=== PATIENT | female | born 1960 | race African-American/Black ===

== ENCOUNTER 2017-05-20 13:40 | Inpatient (IN) ==
[2017-05-20] MEDS ORDERED: SODIUM CHLORIDE 0.9% 1,000 ML IV STA (14:03)
--- NOTE | 2017-05-20 14:22 | Emergency Department Note ---
Rahul Conklin Brittany, am scribing for, and in the presence of, Ang Quintana MD 13:58. Lilian Conklin James D, MD, personally performed the services described in this documentation, ascribed by Gerda Kay in my presence, and it is both accurate and complete 420 . Arrival - Arrival ED Nursing Triage Note: Patient with reports of weakness and not feeling well; reports not taking her Diabetes medications in the last three days; her glucose per EMS 302; Mode of Arrival: Stretcher Limitations: No Limitations Source: Patient, RN Notes Reviewed <Ang Quintana - Last Filed: 05/20/17 16:09> <Lisandro Mckee - Last Filed: 05/20/17 17:24> - Arrival Chief Complaint: Non-Specific - History of Present Illness HPI Narrative: Patient is a 56 y/o obese black female presenting to the ED by EMS with c/o sharp left sided chest pain which onset this morning. Patient is a poor historian. She confirms that for the past 3 days she has not taken her diabetic medications as prescribed in the past 3 days. Denies any other pains other than chest pain. Reports history of prior CVA, HTN, and, Diabetes Mellitus. 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 No other complaint/pain. (Gerda Kay) Patient is a 56 y/o obese black female presenting to the ED by EMS with c/o sharp left sided chest pain which onset this morning. Patient is a poor historian. She confirms that for the past 3 days she has not taken her diabetic medications as prescribed in the past 3 days. Denies any other pains other than chest pain. Reports history of prior CVA, HTN, and, Diabetes Mellitus. 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 No other complaint/pain. (Ang Quintana) Allergies/Adverse Reactions: Allergies Allergy/AdvReac Type Severity Reaction Status Date / Time No Known Allergies Allergy Unverified 09/21/16 19:40 Home Medications: Home Medications Medication Instructions Recorded Confirmed Type Carbamazepine 300 mg PO BID 01/20/16 05/20/17 History Rosuvastatin Calcium [Crestor] 40 mg PO BEDTIME 01/20/16 05/20/17 History Albuterol/Ipratropium Neb [Duoneb] 3 ml RESP TX RT Q4H PRN #0 06/05/16 05/20/17 Rx nebulization solution Clopidogrel [Plavix] 75 mg PO DAILY 09/22/16 05/20/17 History Cyanocobalamin (Vitamin B-12) 2,500 mcg PO DAILY 09/22/16 05/20/17 History [Vitamin B12] Furosemide Tab [Lasix Tab] 40 mg PO TID 09/22/16 05/20/17 History tiZANidine [Zanaflex] 4 mg PO BEDTIME 09/22/16 05/20/17 History Insulin Glargine [Lantus] 25 unit SUBCUT QPM 01/13/17 05/20/17 History Fluticasone Propionate 2 spray BOTH NARES DAILY 05/20/17 05/20/17 History [Fluticasone 50 mcg Nasal [place]] Review of System - Review of System 12 point system: reviewed and no additional remarkable complaints except as stated - Review of System Eyes: Absent: vision change Respiratory: Absent: respiratory distress Cardiovascular: Present: as per HPI, chest pain Gastrointestinal: Absent: abdominal pain Genitourinary female: Absent: dysuria, frequency, urgency <Ang Quintana - Last Filed: 05/20/17 16:09> Medical,Surgical,& Family Hx - Medical History Cardio: History of: Cerebrovascular Disease, CHF (notable for most recent echo showing EF of 20%), Hypertension Neurology: History of: Cerebrovascular Accident Endocrine: History of: Diabetes Mellitus (IDDM) Respiratory: History of: Pulmonary Hypertension Gastrointestinal: History of: GI Problems (previous feeding tube) - Surgical History Abdominal Surgeries: Surgical HX of: Cholecystectomy - Family History Family History: Reports;: Family Cancer, Family Diabetes, Family Heart Disease - Social History Smoking Status: Never smoker Frequency of Alcohol Use: None Type of Drug Use: None <Ang Quintana - Last Filed: 05/20/17 16:09> Exam <Ang Quintana - Last Filed: 05/20/17 16:09> <Lisandro Mckee - Last Filed: 05/20/17 17:24> Physical Examination: GENERAL: This is an obese black female in no apparent distress. HEENT: Head is normocephalic and atraumatic. Pupils are equally round and reactive to light. Extraocular movement are intact. Oropharynx is benign with moist mucous membranes. NECK: Neck is soft and supple without tenderness. There are no masses. There is no lymphadenopathy. LUNGS: Lungs are clear to auscultation bilaterally. Chest rises symmetrically. There is no chest wall tenderness. CV: Heart is regular rate and rhythm without murmurs, rubs, or gallops. ABDOMEN: Abdomen is soft, non-tender to palpation. There are no abnormal masses palpated. There is no organomegaly. Bowel sounds are present and active. SKIN: Skin is warm and dry. No rash. EXTREMITIES: Patient has full range of motion without tenderness. There is no pedal edema. NEUROLOGIC: Awake, alert, and oriented x4. Cranial nerves II through XII are grossly intact. There are no motorsensory deficits. PSYCHIATRIC: Normal affect. Normal mood. (Gerda Kay) GENERAL: This is an obese black female in no apparent distress. HEENT: Head is normocephalic and atraumatic. Pupils are equally round and reactive to light. Extraocular movement are intact. Oropharynx is benign with moist mucous membranes. NECK: Neck is soft and supple without tenderness. There are no masses. There is no lymphadenopathy. LUNGS: Lungs are clear to auscultation bilaterally. Chest rises symmetrically. There is no chest wall tenderness. CV: Heart is regular rate and rhythm without murmurs, rubs, or gallops. ABDOMEN: Abdomen is soft, non-tender to palpation. There are no abnormal masses palpated. There is no organomegaly. Bowel sounds are present and active. SKIN: Skin is warm and dry. No rash. EXTREMITIES: Patient has full range of motion without tenderness. There is no pedal edema. NEUROLOGIC: Awake, alert, and oriented x4. Cranial nerves II through XII are grossly intact. There are no motorsensory deficits. PSYCHIATRIC: Normal affect. Normal mood. (Ang Quintana) Vital Signs: Vital Signs Temperature 98.4 F 05/20/17 13:40 Pulse Rate 96 H 05/20/17 13:40 Respiratory Rate 18 05/20/17 13:40 Blood Pressure 126/82 05/20/17 13:40 O2 Sat by Pulse Oximetry 95 05/20/17 13:40 Course <Ang Quintana - Last Filed: 05/20/17 16:09> <Lisandro Mckee - Last Filed: 05/20/17 17:24> Course Narrative: Medical decision making: Patient has left-sided chest pain with slightly elevated troponin, recommend admission the hospital service for further evaluation and possible cardiology consultation, as well as some Lovenox for possible NSTEMI as her INR is only 1 despite supposedly taking Coumadin daily. Blood pressure and urinary tract infection could also be addressed (Lisandro Mckee) Results - Labs Lab Results: I have reviewed the patients labs - EKG EKG results: interpreted by ERMD - Diagnostic Findings Procedure: Chest x-ray: image reviewed by me (Cardiomegaly, no infiltrates) <Ang Quintana - Last Filed: 05/20/17 16:09> - Labs CBC & BMP: 05/20/17 15:56 05/20/17 15:56 <Lisandro Mckee - Last Filed: 05/20/17 17:24> - Labs Labs: Laboratory Tests 05/20/17 13:53 POC Glucose 291 H Laboratory Tests 05/20/17 14:54 Urine Color Yellow Urine Appearance Cloudy Urine pH 6.0 Ur Specific [place] 1.023 Urine Protein 100 Urine Glucose (UA) Negative Urine Ketones 5 Urine Blood Negative Urine Nitrate Negative Urine Bilirubin Negative Urine Urobilinogen 2.0 H Urine Leukocytes Moderate H Urine RBC 2 Urine WBC 35 Urine WBC Clumps Occasional Ur Squamous Epith Cells Occasional Amorphous Crystals Few Urine Bacteria Moderate Urine Mucus Occasional (Gerda Kay) Laboratory Tests 05/20/17 13:53 POC Glucose 291 H Laboratory Tests 05/20/17 14:54 Urine Color Yellow Urine Appearance Cloudy Urine pH 6.0 Ur Specific [place] 1.023 Urine Protein 100 Urine Glucose (UA) Negative Urine Ketones 5 Urine Blood Negative Urine Nitrate Negative Urine Bilirubin Negative Urine Urobilinogen 2.0 H Urine Leukocytes Moderate H Urine RBC 2 Urine WBC 35 Urine WBC Clumps Occasional Ur Squamous Epith Cells Occasional Amorphous Crystals Few Urine Bacteria Moderate Urine Mucus Occasional (Ang Quintana) - Impressions EKG: Normal sinus rhythm with a rate of 94, nonspecific intraventricular conduction delay, nonspecific ST-T wave changes, left axis deviation. (Ang Quintana) Disposition Case discussed with: patient <Ang Quintana - Last Filed: 05/20/17 16:09> Case discussed with: patient, patient's family Time of Disposition: 17:24 <Lisandro Mckee - Last Filed: 05/20/17 17:24> Clinical Impression: Chest pain, Diabetes mellitus, Noncompliance, History of stroke, NSTEMI (non- ST elevated myocardial infarction) Disposition: Still a Patient Condition: Stable
--- NOTE | 2017-05-20 14:55 | XRay Report ---
Exam: XR chest 1V portable Date: 05/20/2017 2:03 PM Indication: Chest pain Comparison: 03/21/2017 Technical: AP Findings: Cardiomegaly is present. ASVD is present. Low volume effusions are present with some mild residual density in the left base with improved aeration right base. Mediastinum is intact. No pneumothorax. Impression: Cardiomegaly with low volume left effusion with overall slightly improved aeration however there is a component of CHF suspected PROCEDURE INTERPRETED AT [facility] DEPARTMENT OF RADIOLOGY Final Report Signed by: Dr. Bam David
[2017-05-20 15:32] LABS: Amorphous Crystals,Urine Few /HPF (Few); Apearance,Urine CLOUDY (Clear); Bacteria,Urine Moderate /HPF (Few); Bilirubin,Urine Negative (Negative); Blood, Urine Negative (Negative); Glucose,Urine (UA) Negative (Negative); Ketones,Urine 5 mg/dL (Negative); Mucus,Urine Occasional /LPF (Occasional); Nitrite,Urine Negative (Negative); Protein,Urine 100 MG/DL; RBC,Urine 2 /HPF (0-4); Squamous Epithelial Cell,Urine Occasional /HPF (0-10); Urine Color Yellow (Yellow); Urine Specific Gravity 1.023 (1.001-1.035); WBC,Urine 35 /HPF (0-6)
[2017-05-20 16:22] LABS: Basophils % 0.3 % (0.0-0.8); Eosinophils % 0.4 % (0.00-10.9); Hematocrit 40.7 VOL% (35.7-47.0); Immature Granulocytes % 0.3 %; Immature Granulocytes Absolute 0.02 #; Lymphocytes # 2.2 10*3/uL (1.4-4.0); Lymphocytes % 30.4 % (21.3-54.2); Mean Corpuscular HGB Conc 31.9 GM/DL (32-36); Mean Corpuscular Hemoglobin 27 PG (27-34); Mean Corpuscular Volume 83.4 FL (87-102); Mean Platelet Volume 10.4 FL (9.6-12.0); Monocytes # 0.5 10*3/uL (0.11-0.8); Monocytes % 6.6 % (1.7-12.7); Neutrophils # 4.4 10*3/uL (1.4-7.4); Platelet Count 179 T/CUMM (130-400); Red Blood Count 4.88 MC/CUMM (3.8-5.5); Red Cell Distribution Width 16.1 % (9.3-17.3); White Blood Count 7.1 T/CUMM (4-12)
[2017-05-20 16:56] LABS: Alanine Aminotransferase 11 U/L (13-56); Alkaline Phosphatase 65 U/L (45-117); Aspartate Amino Transferase 6 U/L (0-37); Bilirubin,Total < 0.39 MG/DL (0.2-1.0); Blood Urea Nitrogen 17 MG/DL (7-18); Calcium 8.6 MG/DL (8.5-10.1); Glucose 206 MG/DL (74-106); Osmolality,Calculated 299.4 MOS/KG (273-304); Potassium 3.3 MMOL/L (3.5-5.1); Sodium 147 MMOL/L (136-145)
[2017-05-20 16:58] LABS: Troponin I Only 0.112 NG/ML (0.00-0.045)
[2017-05-20] MEDS ORDERED: NITROGLYCERIN SL 0.4 MG TABLET SL STA (17:14)
[2017-05-20] MEDS ORDERED: cefTRIAXone 1,000 MG in SODIUM CHLORIDE 0.9% 100 ML IV STA (17:14)
[2017-05-20] MEDS ORDERED: ENOXAPARIN 100 MG/ML SYRINGE SUBCUT STA (17:23)
[2017-05-20] MEDS ORDERED: NITROGLYCERIN SL 0.4 MG TABLET SL ONE (18:31)
[2017-05-20] MEDS ORDERED: cefTRIAXone 1,000 MG VIAL ONE (18:31)
[2017-05-20] MEDS ORDERED: ENOXAPARIN 100 MG/ML SYRINGE SUBCUT ONE (18:31)
--- NOTE | 2017-05-20 18:40 | Hospitalist History & Physical ---
Assessment and Plan - Time spent with patient Time spent with patient: Greater than 30 minutes (1) Chest pain Status: Acute Assessment and plan: Left sided chest pain since this morning without any shortness of breath, denies nausea and vomiting, chills or fever.Toponin 0.112, Na 147, Potassium 3.3 , BUN 17 and creatinine 0.90 Will Admit. Order Lexiscan. Trending Tropinin series. Repeat EKG in a.m. Replace potassium. Check a BNP. Will consult Cardiology. Current Visit: Yes (2) Diabetes mellitus Status: Acute Assessment and plan: Will place on sliding scale protocol. Will continue home medications. Will order HA1c. Current Visit: Yes (3) History of stroke Status: Acute Assessment and plan: Left sided weakness with history of CVA. Will monitor. Current Visit: Yes (4) Hypokalemia Status: Acute Assessment and plan: Will order potassium replacement protocol. IV fluids with potassium. Current Visit: Yes History of Present Illness Chief complaint: left sided chest pain History of present illness: Ms. Smith is a 56 year old AA female presented to [facility] ED via EMS for complaint of sharp left-sided chest pain with onset this a.m. around 2 gradually became worse throughout the day. Patient is a poor historian. She verbalized to me that she was taking her medications for her diabetes and hypertension but it was reported to the ER physician she has not taken her medications in 3 days. EMS reports blood sugar was 302. Medical HX: CVA (left side deficits), diabetes, HTN. There was no family present in the room at the time of exam. She denies smoking, alcohol, or illicit drug use. She has see Dr Nicole in the past. After discussion with Dr Mckee ED physician and Dr Novak, Hospitalist medicine , it was in agreement the patient will be admitted for further evaluation and treatment. Home medications reviewed and reconciliation to follow. Home Medications Medication Instructions Recorded Confirmed Type Carbamazepine 300 mg PO BID 01/20/16 05/20/17 History Rosuvastatin Calcium [Crestor] 40 mg PO BEDTIME 01/20/16 05/20/17 History Albuterol/Ipratropium Neb [Duoneb] 3 ml RESP TX RT Q4H PRN #0 06/05/16 05/20/17 Rx nebulization solution Clopidogrel [Plavix] 75 mg PO DAILY 09/22/16 05/20/17 History Cyanocobalamin (Vitamin B-12) 2,500 mcg PO DAILY 09/22/16 05/20/17 History [Vitamin B12] Furosemide Tab [Lasix Tab] 40 mg PO TID 09/22/16 05/20/17 History tiZANidine [Zanaflex] 4 mg PO BEDTIME 09/22/16 05/20/17 History Insulin Glargine [Lantus] 25 unit SUBCUT QPM 01/13/17 05/20/17 History Fluticasone Propionate 2 spray BOTH NARES DAILY 05/20/17 05/20/17 History [Fluticasone 50 mcg Nasal [place]] Allergies Allergy/AdvReac Type Severity Reaction Status Date / Time No Known Allergies Allergy Unverified 09/21/16 19:40 Medical,Surgical,& Family Hx - Medical History Cardio: History of: Cerebrovascular Disease, CHF (notable for most recent echo showing EF of 20%), Hypertension Neurology: History of: Cerebrovascular Accident (left sided weakness) Endocrine: History of: Diabetes Mellitus (IDDM) Respiratory: History of: Pulmonary Hypertension Gastrointestinal: History of: GI Problems (previous feeding tube) - Surgical History Abdominal Surgeries: Surgical HX of: Cholecystectomy - Family History Family History: Reports;: Family Cancer, Family Diabetes, Family Heart Disease - Social History Smoking Status: Never smoker Frequency of Alcohol Use: None Type of Drug Use: None Review of systems: ROS completed and pertinent positives and negatives in HPI. Exam - Constitutional Vitals: Period Temp Pulse Resp BP Sys/Gee Pulse Ox Last 24 Hr 98.4 F-98.4 F 93-96 18-18 126-126/82-82 95 General appearance: no acute distress, over weight - Head Head exam: Present: normal inspection - Eye Eye exam: Present: EOMI Pupils: Present: ALONZO - ENT ENT exam: Present: other (moist membranes ) - Neck Neck exam: Present: normal inspection - Respiratory Respiratory exam: Present: clear to auscultation bilaterally. Absent: rhonchi, wheezes - Cardiovascular Cardiovascular exam: Present: regular rate and rhythm - GI/Abdominal GI/Abdominal exam: Present: normal bowel sounds, soft. Absent: tenderness - Extremities Exam Extremities exam: Present: full ROM (right side, left sided weaknes (HX: CVA)), edema (trace edema bilaterally) - Neurological Exam Neurological exam: Present: alert, oriented X3 - Psychiatric Psychiatric exam: Present: normal affect, normal mood. Absent: anxious - Skin Skin exam: Present: normal color, warm, dry Results - Labs CBC & BMP: 05/20/17 15:56 05/20/17 15:56 Lab Results: I have reviewed the past 24 hour labs - EKG EKG results: interpreted by MAX
[2017-05-20] MEDS ORDERED: ONDANSETRON 4 MG/2 ML VIAL IV PRN (19:04)
[2017-05-20] MEDS ORDERED: GLUCAGON 1 MG VIAL IM PRN (19:04)
[2017-05-20] MEDS ORDERED: ACETAMINOPHEN 325 MG TABLET PO PRN (19:04)
[2017-05-20] MEDS ORDERED: DEXTROSE 50% 25 GM/50 ML VIAL IV PRN (19:04)
[2017-05-20] MEDS ORDERED: POTASSIUM CHLORIDE 20 MEQ TABLET PO PRN (19:13)
[2017-05-20] MEDS ORDERED: SODIUM CHLOR 0.45% KCL 20 MEQ 20 MEQ/1,000 ML BAG IV SCH (20:00)
[2017-05-20] MEDS: INSULIN LISPRO 100 UNIT/ML SUBCUT SCH (21:04)
[2017-05-20 22:55] LABS: Troponin I Only 0.109 NG/ML (0.00-0.045)
[2017-05-21 04:48] LABS: Basophils % 0.4 % (0.0-0.8); Eosinophils % 0.4 % (0.00-10.9); Hematocrit 40.4 VOL% (35.7-47.0); Hemoglobin 12.6 GM/DL (12.0-16.0); Immature Granulocytes % 0.6 %; Immature Granulocytes Absolute 0.04 #; Lymphocytes # 2.4 10*3/uL (1.4-4.0); Lymphocytes % 34.5 % (21.3-54.2); Mean Corpuscular HGB Conc 31.2 GM/DL (32-36); Mean Corpuscular Hemoglobin 26 PG (27-34); Mean Corpuscular Volume 83.6 FL (87-102); Monocytes # 0.5 10*3/uL (0.11-0.8); Monocytes % 6.7 % (1.7-12.7); Neutrophils % 57.4 % (38.7-73.9); Platelet Count 196 T/CUMM (130-400); Red Blood Count 4.83 MC/CUMM (3.8-5.5); Red Cell Distribution Width 16.3 % (9.3-17.3)
[2017-05-21 05:33] LABS: Troponin I Only 0.114 NG/ML (0.00-0.045)
[2017-05-21 05:34] LABS: Magnesium 1.8 MG/DL (1.8-2.4); Osmolality,Calculated 300.3 MOS/KG (273-304); Potassium 3.2 MMOL/L (3.5-5.1)
--- NOTE | 2017-05-21 07:03 | EKG Report ---
Stationary ECG Study [facility] ER Test Date: 05/20/2017 3:52:10 PM Pat Name: HANNAH RIVERO Department: Room: 285 Gender: F Mental Health Advanced Practice Nurse: : 1960 Requested by: Ang Wheeler Order Number: [id number] Reading MD: JOSÉ ANTONIO SYLVESTER Intervals [place] Rate: 94 P: 79 DE: 156 QRS: -56 QRSD: 135 T: 93 QT: 410 QTc: 461 Interpretive Statements SINUS RHYTHM MARKED LEFT AXIS DEVIATION INTRAVENTRICULAR CONDUCTION DELAY Electronically Signed On 05-22-17 06:14:02 CDT by JOSÉ ANTONIO SYLVESTER [email or web address]
--- NOTE | 2017-05-21 07:13 | EKG Report ---
Stationary ECG Study [facility] Test Date: 05/21/2017 6:11:02 AM Pat Name: HANNAH RIVERO Department: Room: 285 Gender: F Milking Machine Operator: : 1960 Requested by: Roz Lindquist Order Number: [id number] Reading MD: JOSÉ ANTONIO SYLVESTER Intervals [place] Rate: 97 P: 78 [place]: 176 QRS: -40 QRSD: 142 T: 109 QT: 401 QTc: 456 Interpretive Statements SINUS RHYTHM ABNORMAL LEFT AXIS DEVIATION LEFT BUNDLE BRANCH BLOCK Electronically Signed On 05-22-17 06:15:04 CDT by JOSÉ ANTONIO SYLVESTER [email or web address]
[2017-05-21] MEDS ORDERED: ALBUTEROL/IPRATROPIUM 3 ML NEB RESP TX PRN (08:12)
[2017-05-21] MEDS: INSULIN LISPRO 100 UNIT/ML SUBCUT SCH ×2 (08:38→17:55)
[2017-05-21] MEDS: CLOPIDOGREL 75 MG TABLET PO SCH (08:39)
[2017-05-21] MEDS: PANTOPRAZOLE 40 MG TABLET PO SCH (08:39)
[2017-05-21] MEDS: carBAMazepine 200 MG TABLET PO SCH ×2 (08:39→21:48)
[2017-05-21] MEDS: FUROSEMIDE 40 MG TABLET PO SCH ×3 (08:39→21:48)
[2017-05-21] MEDS: CYANOCOBALAMIN 500 MCG TABLET PO SCH (08:39)
[2017-05-21] MEDS: FLUTICASONE 50 MCG NASAL SPRAY 16 GM BOTTLE BOTH NARES SCH (08:43)
[2017-05-21] MEDS: CIPROFLOXACIN 500 MG TABLET PO SCH ×2 (10:12→21:48)
--- NOTE | 2017-05-21 10:34 | Hospitalist Progress Note ---
Assessment and Plan (1) Nonischemic cardiomyopathy Problem details: Normal coronaries in 2007. Significant left ventricular dysfunction, pulmonary hypertension. Status: Chronic Assessment and plan: Ejection fraction 25-30% on echo January 2017. Current Visit: No (2) UTI (urinary tract infection) Status: Acute Assessment and plan: Gram-negative rods in urine. Follow-up culture. Start on Cipro. Continue Rocephin IV. Current Visit: No (3) Chest pain Status: Resolved Current Visit: Yes (4) Diabetes mellitus Status: Chronic Current Visit: Yes Qualifiers: Diabetes mellitus type: type 2 (5) History of stroke Status: Chronic Current Visit: No Hospitalist: Subjective Interval history: Patient seen and examined. No acute events overnight. Case discussed with nursing staff. Labs reviewed. No complaints overnight. Patient receiving antibiotics for urinary tract infection. Awaiting cardiology consult. Exam - Constitutional Vitals: Period Temp Pulse Resp BP Sys/Gee Pulse Ox Last 24 Hr 96.1 F-98.4 F 58-112 16-20 96-149/41-99 92-100 Exam: Constitutional System: No distress. No tremulousness. Head: Normocephalic, atraumatic. Ears, Nose and Throat System: No pain or tenderness. No epistaxis or discharge Eyes System: Pupils equal, round, and reactive. Extraocular muscles intact. Neck: Supple, without adenopathy, No jugular venous distention. Respiratory System: Chest clear to auscultation. Cardiovascular System: Heart with regular rate and rhythm. No murmur. GI System: Abdomen soft, nontender. Normo active bowel sounds present. Musculoskeletal System: limbs with no pedal edema. Full distal pulses. Neurological System: No discernable sensory deficit. No aphasia Psychiatric System: Conversation is rational Results - Labs CBC & BMP: 05/21/17 04:19 05/21/17 04:19 Lab Results: I have reviewed the past 24 hour labs
[2017-05-21 10:47] LABS: Troponin I Only 0.081 NG/ML (0.00-0.045)
--- NOTE | 2017-05-21 11:10 | Cardiology Consult Note ---
Assessment and Plan (1) Chest pain Status: Resolved Assessment and plan: This is a difficult history. She has marginal troponins but this is the case every time she presents and my suspicion is that she is having atypical chest pain. I am going to review a 2D echocardiogram to assess LV function check serial enzyme studies as well as an EKG. Current Visit: Yes (2) Mitral valve regurgitation Status: Chronic Current Visit: No Qualifiers: Cardiac valve disease etiology: nonrheumatic Qualified Code(s): I34.0 - Nonrheumatic mitral (valve) insufficiency (3) Noncompliance Status: Chronic Current Visit: No (4) Seizure disorder Status: Chronic Current Visit: No History of Present Illness - Data of Consult Patient: known to practice within the last 3 years - Consult Narrative Reason for consult: Patient with chest discomfort History of present illness: Ms. Smith is a 56 year old female who is a very poor historian. She has a history of diabetes and hypertension and has had a problem with history of difficulty communicating related to a CVA in the past. She is not with any family that can give me any further history. She says that yesterday she began to complain of chest discomfort. Pain is not typical for angina although again she is not a good describe her of her symptoms. She is not having problems with syncope or palpitations. Her potassium was low her troponin is and always has been in the alcazar zone. It usually runs in the 0.1 range. She denies any pleuritic component to her chest pain although it looks as if she is splinting when she takes a deep breath. She does not give me a history of any problems of related to recent fever or chills or cough. She is admitted with a history of chest discomfort for evaluation. She apparently is bedbound and is dependent on her for her activities. CC: Araceli Forbes MD - Home Medications and Allergies Home Medications: Home Medications Medication Instructions Recorded Confirmed Type Carbamazepine 300 mg PO BID 01/20/16 05/20/17 History Rosuvastatin Calcium [Crestor] 40 mg PO BEDTIME 01/20/16 05/20/17 History Albuterol/Ipratropium Neb [Duoneb] 3 ml RESP TX RT Q4H PRN #0 06/05/16 05/20/17 Rx nebulization solution Clopidogrel [Plavix] 75 mg PO DAILY 09/22/16 05/20/17 History Cyanocobalamin (Vitamin B-12) 2,500 mcg PO DAILY 09/22/16 05/20/17 History [Vitamin B12] Furosemide Tab [Lasix Tab] 40 mg PO TID 09/22/16 05/20/17 History tiZANidine [Zanaflex] 4 mg PO BEDTIME 09/22/16 05/20/17 History Insulin Glargine [Lantus] 25 unit SUBCUT QPM 01/13/17 05/20/17 History Fluticasone Propionate 2 spray BOTH NARES DAILY 05/20/17 05/20/17 History [Fluticasone 50 mcg Nasal [place]] Allergies/Adverse Reactions: Allergies Allergy/AdvReac Type Severity Reaction Status Date / Time No Known Allergies Allergy Unverified 09/21/16 19:40 Medical,Surgical,& Family Hx - Medical History Cardio: History of: Cerebrovascular Disease, CHF (notable for most recent echo showing EF of 20%), Hypertension Neurology: History of: Cerebrovascular Accident (left sided weakness) Endocrine: History of: Diabetes Mellitus (IDDM) Respiratory: History of: Pulmonary Hypertension Gastrointestinal: History of: GI Problems (previous feeding tube) - Surgical History Abdominal Surgeries: Surgical HX of: Cholecystectomy - Family History Family History: Reports;: Family Cancer, Family Diabetes, Family Heart Disease - Social History Smoking Status: Never smoker Frequency of Alcohol Use: None Type of Drug Use: None Physical Examination Vital Signs Temp Pulse Resp BP Pulse Ox 98.4 F 93 H 18 126/82 95 05/20/17 13:40 05/20/17 13:40 05/20/17 13:40 05/20/17 13:40 05/20/17 13:40 Exam: Physical exam: General: She is a well-developed well-nourished black lady who is unable to communicate related I think to a fascia. She has no focal neurologic deficits. She is alert but disoriented HEENT exam: Pupils are equal round reactive to light extraocular movements are intact there is reasonably good dentition the oral mucosa is not pale or cyanotic. Neck is supple there is no JVD trachea is midline carotid upstrokes are normal amplitude there is no audible bruit thyroid appears to be normal size Chest: Lungs: Clear without rales rhonchi or wheezes noted patient is mildly dyspneic at rest without abdominal breathing or intercostal retractions Abdomen: Abdomen is soft and nontender with normoactive bowel sounds is no hepatosplenomegaly there is no midline bruit or palpable abdominal aorta Extremities: There is no cyanosis or clubbing there is no significant edema. There is no kyphosis or scoliosis noted Neurologic: There does not appear to be any focal neurologic deficit. Patient moves all extremities. Result/EKG - Labs CBC & BMP: 05/21/17 04:19 05/21/17 04:19 Labs: Laboratory Results - last 24 hr 05/20/17 05/20/17 05/20/17 13:53 14:54 15:56 WBC 7.1 RBC 4.88 Hgb 13.0 Hct 40.7 MCV 83.4 L MCH 27 MCHC 31.9 L RDW 16.1 Plt Count 179 MPV 10.4 Neut % (Auto) 62.0 Lymph % (Auto) 30.4 [place] % (Auto) 6.6 Eos % (Auto) 0.4 Baso % (Auto) 0.3 Neut # (Auto) 4.4 Lymph # (Auto) 2.2 [place] # (Auto) 0.5 Eos # (Auto) 0.0 Baso # (Auto) 0.0 Immature Gran % 0.3 Nucleated RBC % 0.0 Immature Gran # 0.02 Nucleated RBCs # 0.00 Sodium Potassium Chloride Carbon Dioxide Anion Gap BUN Creatinine GFR Calculation BUN/Creatinine Ratio Glucose POC Glucose 291 H Hemoglobin A1c Calculated Osmolality Calcium Magnesium Total Bilirubin AST ALT Alkaline Phosphatase Total Creatine Kinase CK-MB (CK-2) Troponin I B-Natriuretic Peptide Total Protein Albumin Globulin Albumin/Globulin Ratio b-Hydroxybutyric mmol/L Cancelled Urine Color Yellow Urine Appearance Cloudy Urine pH 6.0 Ur Specific [place] 1.023 Urine Protein 100 Urine Glucose (UA) Negative Urine Ketones 5 Urine Blood Negative Urine Nitrate Negative Urine Bilirubin Negative Urine Urobilinogen 2.0 H Urine Leukocytes Moderate H Urine RBC 2 Urine WBC 35 Urine WBC Clumps Occasional Ur Squamous Epith Cells Occasional Amorphous Crystals Few Urine Bacteria Moderate Urine Mucus Occasional Ur Culture Indicated? Results to follow 05/20/17 05/20/17 05/20/17 15:56 20:51 22:09 WBC RBC Hgb Hct MCV MCH MCHC RDW Plt Count MPV Neut % (Auto) Lymph % (Auto) [place] % (Auto) Eos % (Auto) Baso % (Auto) Neut # (Auto) Lymph # (Auto) [place] # (Auto) Eos # (Auto) Baso # (Auto) Immature Gran % Nucleated RBC % Immature Gran # Nucleated RBCs # Sodium 147 H Potassium 3.3 L Chloride 111 H Carbon Dioxide 23 Anion Gap 16.3 H BUN 17 Creatinine 0.90 GFR Calculation 120 BUN/Creatinine Ratio 18.00 Glucose 206 H POC Glucose 284 H Hemoglobin A1c Calculated Osmolality 299.4 Calcium 8.6 Magnesium Total Bilirubin < 0.39 AST 6 ALT 11 L Alkaline Phosphatase 65 Total Creatine Kinase 35 CK-MB (CK-2) 1.1 Troponin I 0.112 H 0.109 H B-Natriuretic Peptide Total Protein 7.0 Albumin 3.0 L Globulin 4.0 H Albumin/Globulin Ratio 0.7 L b-Hydroxybutyric mmol/L Urine Color Urine Appearance Urine pH Ur Specific [place] Urine Protein Urine Glucose (UA) Urine Ketones Urine Blood Urine Nitrate Urine Bilirubin Urine Urobilinogen Urine Leukocytes Urine RBC Urine WBC Urine WBC Clumps Ur Squamous Epith Cells Amorphous Crystals Urine Bacteria Urine Mucus Ur Culture Indicated? 05/21/17 05/21/17 05/21/17 04:19 04:19 04:19 WBC 7.0 RBC 4.83 Hgb 12.6 Hct 40.4 MCV 83.6 L MCH 26 L MCHC 31.2 L RDW 16.3 Plt Count 196 MPV 11.0 Neut % (Auto) 57.4 Lymph % (Auto) 34.5 [place] % (Auto) 6.7 Eos % (Auto) 0.4 Baso % (Auto) 0.4 Neut # (Auto) 4.0 Lymph # (Auto) 2.4 [place] # (Auto) 0.5 Eos # (Auto) 0.0 Baso # (Auto) 0.0 Immature Gran % 0.6 Nucleated RBC % 0.0 Immature Gran # 0.04 Nucleated RBCs # 0.00 Sodium 148 H Potassium 3.2 L Chloride 113 H Carbon Dioxide 24 Anion Gap 14.2 BUN 17 Creatinine 1.00 GFR Calculation 89 BUN/Creatinine Ratio 17.00 Glucose 187 H POC Glucose Hemoglobin A1c Calculated Osmolality 300.3 Calcium 9.0 Magnesium 1.8 Total Bilirubin AST ALT Alkaline Phosphatase Total Creatine Kinase CK-MB (CK-2) Troponin I B-Natriuretic Peptide 1821 H Total Protein Albumin Globulin Albumin/Globulin Ratio b-Hydroxybutyric mmol/L Urine Color Urine Appearance Urine pH Ur Specific [place] Urine Protein Urine Glucose (UA) Urine Ketones Urine Blood Urine Nitrate Urine Bilirubin Urine Urobilinogen Urine Leukocytes Urine RBC Urine WBC Urine WBC Clumps Ur Squamous Epith Cells Amorphous Crystals Urine Bacteria Urine Mucus Ur Culture Indicated? 05/21/17 05/21/17 05/21/17 04:19 04:19 08:19 WBC RBC Hgb Hct MCV MCH MCHC RDW Plt Count MPV Neut % (Auto) Lymph % (Auto) [place] % (Auto) Eos % (Auto) Baso % (Auto) Neut # (Auto) Lymph # (Auto) [place] # (Auto) Eos # (Auto) Baso # (Auto) Immature Gran % Nucleated RBC % Immature Gran # Nucleated RBCs # Sodium Potassium Chloride Carbon Dioxide Anion Gap BUN Creatinine GFR Calculation BUN/Creatinine Ratio Glucose POC Glucose 238 H Hemoglobin A1c 8.5 H Calculated Osmolality Calcium Magnesium Total Bilirubin AST ALT Alkaline Phosphatase Total Creatine Kinase 34 CK-MB (CK-2) 1.1 Troponin I 0.114 H B-Natriuretic Peptide Total Protein Albumin Globulin Albumin/Globulin Ratio b-Hydroxybutyric mmol/L Urine Color Urine Appearance Urine pH Ur Specific [place] Urine Protein Urine Glucose (UA) Urine Ketones Urine Blood Urine Nitrate Urine Bilirubin Urine Urobilinogen Urine Leukocytes Urine RBC Urine WBC Urine WBC Clumps Ur Squamous Epith Cells Amorphous Crystals Urine Bacteria Urine Mucus Ur Culture Indicated? 05/21/17 10:07 WBC RBC Hgb Hct MCV MCH MCHC RDW Plt Count MPV Neut % (Auto) Lymph % (Auto) [place] % (Auto) Eos % (Auto) Baso % (Auto) Neut # (Auto) Lymph # (Auto) [place] # (Auto) Eos # (Auto) Baso # (Auto) Immature Gran % Nucleated RBC % Immature Gran # Nucleated RBCs # Sodium Potassium Chloride Carbon Dioxide Anion Gap BUN Creatinine GFR Calculation BUN/Creatinine Ratio Glucose POC Glucose Hemoglobin A1c Calculated Osmolality Calcium Magnesium Total Bilirubin AST ALT Alkaline Phosphatase Total Creatine Kinase 52 D CK-MB (CK-2) 1.1 Troponin I 0.081 H D B-Natriuretic Peptide Total Protein Albumin Globulin Albumin/Globulin Ratio b-Hydroxybutyric mmol/L Urine Color Urine Appearance Urine pH Ur Specific [place] Urine Protein Urine Glucose (UA) Urine Ketones Urine Blood Urine Nitrate Urine Bilirubin Urine Urobilinogen Urine Leukocytes Urine RBC Urine WBC Urine WBC Clumps Ur Squamous Epith Cells Amorphous Crystals Urine Bacteria Urine Mucus Ur Culture Indicated?
[2017-05-21] MEDS ORDERED: INSULIN GLARGINE 100 UNIT/ML SUBCUT ONE (17:37)
[2017-05-21] MEDS: INSULIN GLARGINE 100 UNIT/ML SUBCUT SCH (18:02)
[2017-05-21] MEDS: cefTRIAXone 1,000 MG in SODIUM CHLORIDE 0.9% 100 ML IV SCH (21:49)
[2017-05-21] MEDS: ROSUVASTATIN 20 MG TABLET PO SCH (21:49)
[2017-05-21] MEDS: tiZANidine 4 MG TABLET PO SCH (21:49)
--- NOTE | 2017-05-22 10:21 | Cardiology Progress Note ---
Assessment and Plan (1) Chest pain Status: Resolved Assessment and plan: This is a difficult history. She has marginal troponins but this is the case every time she presents and my suspicion is that she is having atypical chest pain. I am going to review a 2D echocardiogram to assess LV function check serial enzyme studies as well as an EKG. Current Visit: Yes (2) Mitral valve regurgitation Status: Chronic Current Visit: No Qualifiers: Cardiac valve disease etiology: nonrheumatic Qualified Code(s): I34.0 - Nonrheumatic mitral (valve) insufficiency (3) Noncompliance Status: Chronic Current Visit: No (4) Seizure disorder Status: Chronic Current Visit: No Cardiology - PN: Subj Interval history: 56-year-old lady who presented with chest discomfort. She has history of CVA and is dysarthric. She is a poor historian. Her troponins are nondiagnostic for evidence of an acute coronary syndrome. I think overall she is stable and our plan is going to increase her activity continue following closely. Exam (Progress Note) - Constitutional Vitals: Period Temp Pulse Resp BP Sys/Gee Pulse Ox Last 24 Hr 96 F-98.5 F 80-106 16-22 99-152/60-93 92-98 Exam: General:no acute distress. alert and oriented, mood and affect are normal. Dysarthric speech pattern. HEENT: no new lesions, sclerae are clear, mouth and pharynx benign Neck: supple, trachea midline, no JVD noted Lungs: no rales ronchi or wheeze is noted. pt comfortable without accesory muscle use to assist with breathing CV: RRR no murmur rub or gallop is noted. Abd: soft and nontender, BSNA, no masses. Ext: no cyanosis, clubbing or edema Neuro: She has a left sided hemiparesis Result/EKG - Labs CBC & BMP: 05/21/17 04:19 05/21/17 04:19 Labs: Laboratory Results - last 24 hr 05/21/17 05/21/17 05/21/17 10:07 12:11 15:40 POC Glucose 179 H 252 H Total Creatine Kinase 52 D CK-MB (CK-2) 1.1 Troponin I 0.081 H D 05/22/17 07:26 POC Glucose 163 H Total Creatine Kinase CK-MB (CK-2) Troponin I
[2017-05-22] MEDS: INSULIN LISPRO 100 UNIT/ML SUBCUT SCH ×2 (10:54→16:45)
[2017-05-22] MEDS: CYANOCOBALAMIN 500 MCG TABLET PO SCH (11:44)
[2017-05-22] MEDS: PANTOPRAZOLE 40 MG TABLET PO SCH (12:00)
[2017-05-22] MEDS: FUROSEMIDE 40 MG TABLET PO SCH ×3 (12:00→21:36)
[2017-05-22] MEDS: carBAMazepine 200 MG TABLET PO SCH ×2 (12:00→21:35)
[2017-05-22] MEDS: CLOPIDOGREL 75 MG TABLET PO SCH (12:01)
[2017-05-22] MEDS: CIPROFLOXACIN 500 MG TABLET PO SCH ×2 (12:01→21:36)
[2017-05-22] MEDS: FLUTICASONE 50 MCG NASAL SPRAY 16 GM BOTTLE BOTH NARES SCH (12:01)
--- NOTE | 2017-05-22 12:09 | Discharge Summary ---
Hospital Course - Hospital Course Hospital Course: Ms. Smith is a 56-year-old -[place] female that was admitted through the emergency department 5 days ago with the following presentation and assessment. Chief complaint: left sided chest pain History of present illness: Ms. Smith is a 56 year old AA female presented to [facility] ED via EMS for complaint of sharp left-sided chest pain with onset this a.m. around 2 gradually became worse throughout the day. Patient is a poor historian. She verbalized to me that she was taking her medications for her diabetes and hypertension but it was reported to the ER physician she has not taken her medications in 3 days. EMS reports blood sugar was 302. Medical HX: CVA (left side deficits), diabetes, HTN. There was no family present in the room at the time of exam. She denies smoking, alcohol, or illicit drug use. She has see Dr Nicole in the past. Home medications reviewed and reconciliation to follow. (1) Chest pain Status: Acute Assessment and plan: Left sided chest pain since this morning without any shortness of breath, denies nausea and vomiting, chills or fever.Toponin 0.112, Na 147, Potassium 3.3 , BUN 17 and creatinine 0.90 Will Admit. Order Lexiscan. Trending Tropinin series. Repeat EKG in a.m. Replace potassium. Check a BNP. Will consult Cardiology. Current Visit: Yes (2) Diabetes mellitus Status: Acute Assessment and plan: Will place on sliding scale protocol. Will continue home medications. Will order HA1c. Current Visit: Yes (3) History of stroke Status: Acute Assessment and plan: Left sided weakness with history of CVA. Will monitor. Current Visit: Yes (4) Hypokalemia Status: Acute Assessment and plan: Will order potassium replacement protocol. IV fluids with potassium. Current Visit: Yes Hospital course: The patient was seen in consultation by cardiology Dr. Samuel over the weekend. A repeat echocardiogram was done showing a left ventricular apical thrombus. The patient was started on heparin and transitioned to Eliquis. She has no new symptoms and her home medications were reviewed and reconciled. Of note, her Coreg dose was reduced. Eliquis was started. Entresto was added. A short-term prescription for Cipro was given for treatment of E. coli urinary tract infection. Protonix was added for GI prophylaxis given the patient's Eliquis and Plavix need. She has reached maximal benefit from this inpatient hospitalization is being discharged home to follow-up with her primary care physician and primary professional athlete Dr. Nicole in 2 weeks. - Time spent with patient Time with patient DS: Greater than 30 minutes (Total discharge time for this patient, including [id number] time, clinical documentation, medication reconciliation, and discharge planning was 39 minutes.) Diagnosis - Discharge Diagnosis (1) Nonischemic cardiomyopathy Status: Chronic (2) UTI (urinary tract infection) Status: Acute (3) Chest pain Status: Resolved (4) Diabetes mellitus Status: Chronic (5) History of stroke Status: Chronic (6) Left ventricular apical thrombus Status: Acute Specialty Discharge - Follow Up or Referrals Follow up with: Jacob Nicole MD [Physician] - 06/08/17 9:40 am Discharge Plan - Discharge Data Disposition: Home Health Service Condition at Discharge: Stable Discharge Diet: advance to your usual diet Activity: resume usual activities as tolerated Weight Bearing at Discharge: full weight bearing Contact your physician if you experience:: fever over 101, Shortness of breath, Bleeding - Discharge Medications New Ciprofloxacin Tab [Cipro Tab] 500 mg PO Q12HR #10 tablet Apixaban [Eliquis] 5 mg PO BID #60 tablet Carvedilol [Coreg] 3.125 mg PO BID #60 tablet Pantoprazole Tab [Protonix Tab] 40 mg PO DAILY #30 tablet Sacubitril/Valsartan [Entresto 49 mg-51 mg Tablet] 0.5 tablet PO BID #60 tablet Continue Carbamazepine 300 mg PO BID Rosuvastatin Calcium [Crestor] 40 mg PO BEDTIME Albuterol/Ipratropium Neb [Duoneb] 3 ml RESP TX RT Q4H PRN #0 nebulization solution PRN Reason: Shortness Of Breath/Wheezing Clopidogrel [Plavix] 75 mg PO DAILY tiZANidine [Zanaflex] 4 mg PO BEDTIME Furosemide Tab [Lasix Tab] 40 mg PO TID Cyanocobalamin (Vitamin B-12) [Vitamin B12] 2,500 mcg PO DAILY Spironolactone [Aldactone] 50 mg PO DAILY Insulin Glargine [Lantus] 25 unit SUBCUT QPM Fluticasone Propionate [Fluticasone 50 mcg Nasal [place]] 2 spray BOTH NARES DAILY Lisinopril 40 mg PO DAILY Discontinued Carvedilol [Coreg] 25 mg PO BID - Follow Up or Referral Follow Up: Jacob Nicole MD [Physician] - 06/08/17 9:40 am - Forms/Instructions Exam - Constitutional Vitals: Period Temp Pulse Resp BP Sys/Gee Pulse Ox Last 24 Hr 96 F-98.5 F 80-106 16-22 99-152/60-93 92-98 Discharge Results Labs on day of discharge: Labs from last 24 hours 05/22/17 05/21/17 05/21/17 07:26 15:40 12:11 POC Glucose 163 H 252 H 179 H - Imaging and Cardiology Cardiology Procedure: report reviewed by me DS: Provider Date of admission: 05/20/17 17:38 Primary care physician: . No PCP Attending physician on admission: Cyrus Fairbanks MD Consults: 05/20/17 18:55 Consult to Physician [CONS] Routine Comment: left sided chest pain Consulting Provider: Jacob Nicole When should Consulting Provider be notified: In am Discharging clinician: Araceli Forbes MD Expected date of discharge: 05/25/17
[2017-05-22] MEDS: HEPARIN DRIP 25,000 UNITS/500 ML PREMIX IV SCH (15:24)
--- NOTE | 2017-05-22 15:56 | Hospitalist Progress Note ---
Assessment and Plan - Time spent with patient Time spent with patient: Less than 30 minutes (1) Chest pain Status: Resolved Assessment and plan: 05/22/17 - No events noted throughout the night. Cardiology is following. 05/21/17 -Left sided chest pain since this morning without any shortness of breath, denies nausea and vomiting, chills or fever.Toponin 0.112, Na 147, Potassium 3.3, BUN 17 and creatinine 0.90 05/20/17 -Will Admit. Order Lexiscan. Trending Tropinin series. Repeat EKG in a.m. Replace potassium. Check a BNP. Will consult Cardiology. Current Visit: Yes (2) Diabetes mellitus Status: Chronic Assessment and plan: 05/22/17 - Will continue to monitor. Will place on sliding scale protocol. Will continue home medications. Will order HA1c. Current Visit: Yes Qualifiers: Diabetes mellitus type: type 2 (3) History of stroke Status: Chronic Assessment and plan: 05/22/17 - No new events noted. Will continue to monitor. Left sided weakness with history of CVA. Will monitor. Current Visit: No (4) Hypokalemia Status: Acute Assessment and plan: 05/22/17 -On potassium replacement protocol. Will continue to monitor. Will order potassium replacement protocol. IV fluids with potassium. Current Visit: Yes Hospitalist: Subjective Interval history: 05/22/17 - Ms Smith was seen, examined and chart reviewed. No acute events noted overnight. Labs reviewed. She communicates that she is tolerting her meals. Denies nausea or vomiting. She is on antibiotic therapy for UTI. Cardiology to follow. Exam - Constitutional Vitals: Period Temp Pulse Resp BP Sys/Gee Pulse Ox Last 24 Hr 96 F-98.5 F 80-107 16-22 99-152/60-93 92-98 General appearance: over weight - Head Head exam: Present: normal inspection - Eye Eye exam: Present: EOMI Pupils: Present: ALONZO - ENT ENT exam: Present: other (moist membranes) - Neck Neck exam: Present: normal inspection - Respiratory Respiratory exam: Present: clear to auscultation bilaterally. Absent: rhonchi, wheezes - Cardiovascular Cardiovascular exam: Present: regular rate and rhythm - GI/Abdominal GI/Abdominal exam: Present: normal bowel sounds, soft. Absent: tenderness, rebound - Extremities Exam Extremities exam: Present: normal inspection, other (left sided weakness upper and lower extremities r/t hx: CVA). Absent: edema - Neurological Exam Neurological exam: Present: alert - Psychiatric Psychiatric exam: Present: normal affect, normal mood. Absent: agitated, anxious - Skin Skin exam: Present: normal color, warm, dry Results - Labs CBC & BMP: 05/21/17 04:19 05/21/17 04:19 Lab Results: I have reviewed the past 24 hour labs
--- NOTE | 2017-05-22 16:36 | ECHO Report ---
Doreen Smith Exam Date: 05/22/2017 11:19 Referring Physician: Technologist: Helen Age: 56 Ht (in): 67 Wt (lb): 227 Gender: F Exam Location: [facility] Echo Indications: Chest pain, unspecified, Mitral valve regurge, Seizures, CVA BP: 123 / 73 HR: 97 Rhythm: Sinus Technical Quality: Good IMPRESSIONS Moderately increased left ventricular cavity size. Moderate left ventricular hypertrophy. Left ventricular ejection fraction is estimated at 20 %. Left ventricular apical thrombus measuring 2.11cm x 2.89cm. Mildly increased right ventricular size. Moderately increased right atrial size. Moderately increased left atrial size. Morphologically normal mitral valve. Mild-moderate mitral valve regurgitation. Aortic valve sclerosis without stenosis. [id number] aortic valve regurgitation. Morphologically normal tricuspid valve. Iguz-ml-qfnlzmyx tricuspid valve regurgitation. Tricuspid regurgitation velocities suggest a PAP of 57 mmHg. Morphologically normal pulmonic valve without significant stenosis. There is no pulmonic regurgitation. Normal pericardium without effusion. Normal ascending aorta dimension. MEASUREMENTS (Male / Female) Normal Values 2D ECHO LV Diastolic Diameter PLAX 6.4 cm 4.2 - 5.9 / 3.9 - 5.3 cm LV Systolic Diameter PLAX 5.8 cm LV Fractional Shortening PLAX 9.5 % IVS Diastolic Thickness 1.5 cm 0.6 - 1.0 / 0.6 - 0.9 cm LVPW Diastolic Thickness 1.5 cm 0.6 - 1.0 / 0.6 - 0.9 cm RV Internal Dim ED PLAX 3.7 cm Aortic Root Diameter 2.9 cm LA Systolic Diameter LX 4.6 cm 3.0 - 4.0 / 2.7 - 3.8 cm DOPPLER TR Peak Velocity 343.0 cm/s TR Peak Gradient 47.1 mmHg FINDINGS Left Ventricle Moderately increased left ventricular cavity size. Moderate left ventricular hypertrophy. Left ventricular ejection fraction is estimated at 20 %. Left ventricular apical thrombus measuring 2.11cm x 2.89cm Right Ventricle Mildly increased right ventricular size. Right Atrium Moderately increased right atrial size Left Atrium Moderately increased left atrial size. Mitral Valve Morphologically normal mitral valve. Mild-moderate mitral valve regurgitation. Aortic Valve Aortic valve sclerosis without stenosis. Zysb-rw-rpugkevr aortic valve regurgitation. Tricuspid Valve Morphologically normal tricuspid valve. Yuuj-xn-tjkwfpiq tricuspid valve regurgitation. Tricuspid regurgitation velocities suggest a PAP of 57 mmHg. Pulmonic Valve Morphologically normal pulmonic valve without significant stenosis. There is no pulmonic regurgitation. Pericardium Normal pericardium without effusion. Aorta Normal ascending aorta dimension. Palomo Samuel MD (Electronically Signed) Final Date: 22 May 2017 16:35
[2017-05-22] MEDS: tiZANidine 4 MG TABLET PO SCH (21:35)
[2017-05-22] MEDS: ROSUVASTATIN 20 MG TABLET PO SCH (21:35)
[2017-05-22] MEDS: INSULIN GLARGINE 100 UNIT/ML SUBCUT SCH (21:36)
[2017-05-23] MEDS: cefTRIAXone 1,000 MG in SODIUM CHLORIDE 0.9% 100 ML IV SCH ×2 (02:04→22:01)
[2017-05-23 06:53] LABS: Basophils % 0.4 % (0.0-0.8); Eosinophils # 0.1 10*3/uL (0.0-0.87); Eosinophils % 0.7 % (0.00-10.9); Hematocrit 35.8 VOL% (35.7-47.0); Hemoglobin 11.3 GM/DL (12.0-16.0); Immature Granulocytes % 0.4 %; Immature Granulocytes Absolute 0.03 #; Lymphocytes # 2.4 10*3/uL (1.4-4.0); Lymphocytes % 32.4 % (21.3-54.2); Mean Corpuscular HGB Conc 31.6 GM/DL (32-36); Mean Corpuscular Hemoglobin 27 PG (27-34); Mean Platelet Volume 10.8 FL (9.6-12.0); Monocytes # 0.5 10*3/uL (0.11-0.8); Monocytes % 7.1 % (1.7-12.7); Neutrophils # 4.4 10*3/uL (1.4-7.4); Platelet Count 180 T/CUMM (130-400); Red Blood Count 4.26 MC/CUMM (3.8-5.5); Red Cell Distribution Width 16.8 % (9.3-17.3); White Blood Count 7.5 T/CUMM (4-12)
[2017-05-23 07:42] LABS: Blood Urea Nitrogen 17 MG/DL (7-18); Calcium 8.5 MG/DL (8.5-10.1); Glucose 239 MG/DL (74-106); Magnesium 1.8 MG/DL (1.8-2.4); Osmolality,Calculated 295.8 MOS/KG (273-304); Potassium 3.9 MMOL/L (3.5-5.1); Sodium 144 MMOL/L (136-145); Troponin I Only 0.091 NG/ML (0.00-0.045)
--- NOTE | 2017-05-23 07:58 | EKG Report ---
Stationary ECG Study [facility] Test Date: 05/23/2017 4:46:09 AM Pat Name: HANNAH RIVERO Department: Room: 285 Gender: F Radio Station Engineer: : 1960 Requested by: Roz Lindquist Order Number: [id number] Reading MD: MESFIN SCOTT Intervals Sims Rate: 78 P: 13 TN: 177 QRS: 38 QRSD: 142 T: 253 QT: 450 QTc: 484 Interpretive Statements SINUS RHYTHM LEFT BUNDLE BRANCH BLOCK Electronically Signed On 05-23-17 09:11:33 CDT by MESFIN SCOTT [email or web address]
[2017-05-23] MEDS: carBAMazepine 200 MG TABLET PO SCH ×2 (09:53→22:00)
[2017-05-23] MEDS: CYANOCOBALAMIN 500 MCG TABLET PO SCH (09:54)
[2017-05-23] MEDS: CLOPIDOGREL 75 MG TABLET PO SCH (09:55)
[2017-05-23] MEDS: FUROSEMIDE 40 MG TABLET PO SCH ×3 (09:55→22:00)
[2017-05-23] MEDS: PANTOPRAZOLE 40 MG TABLET PO SCH (09:55)
[2017-05-23] MEDS: INSULIN LISPRO 100 UNIT/ML SUBCUT SCH ×2 (09:56→17:04)
[2017-05-23] MEDS: CIPROFLOXACIN 500 MG TABLET PO SCH ×2 (09:56→22:00)
[2017-05-23] MEDS: FLUTICASONE 50 MCG NASAL SPRAY 16 GM BOTTLE BOTH NARES SCH (11:15)
[2017-05-23] MEDS: HEPARIN DRIP 25,000 UNITS/500 ML PREMIX IV SCH ×2 (11:36→16:00)
--- NOTE | 2017-05-23 12:41 | Hospitalist Progress Note ---
Assessment and Plan (1) Nonischemic cardiomyopathy Problem details: Normal coronaries in 2007. Significant left ventricular dysfunction, pulmonary hypertension. Status: Chronic Assessment and plan: Ejection fraction 25-30% on echo January 2017. 05/22/17 echo shows: IMPRESSIONS Moderately increased left ventricular cavity size. Moderate left ventricular hypertrophy. Left ventricular ejection fraction is estimated at 20 %. Left ventricular apical thrombus measuring 2.11cm x 2.89cm. Mildly increased right ventricular size. Moderately increased right atrial size. Moderately increased left atrial size. Morphologically normal mitral valve. Mild-moderate mitral valve regurgitation. Aortic valve sclerosis without stenosis. Dmed-va-rxwbqbva aortic valve regurgitation. Morphologically normal tricuspid valve. Oztj-sg-vlupfika tricuspid valve regurgitation. Tricuspid regurgitation velocities suggest a PAP of 57 mmHg. Morphologically normal pulmonic valve without significant stenosis. There is no pulmonic regurgitation. Normal pericardium without effusion. Normal ascending aorta dimension. Current Visit: No (2) UTI (urinary tract infection) Status: Acute Assessment and plan: Gram-negative rods in urine. Follow-up culture. Start on Cipro. Continue Rocephin IV. Current Visit: No (3) Chest pain Status: Resolved Current Visit: Yes (4) Diabetes mellitus Status: Chronic Current Visit: Yes Qualifiers: Diabetes mellitus type: type 2 (5) History of stroke Status: Chronic Current Visit: No Hospitalist: Subjective Interval history: Patient seen and examined. No acute events overnight. Case discussed with nursing staff. Labs reviewed. Started on heparin drip last night due to cardiac thrombus Exam - Constitutional Vitals: Period Temp Pulse Resp BP Sys/Gee Pulse Ox Last 24 Hr 96.8 F-98.5 F 72-103 16-20 84-156/48-82 98-99 Exam: Constitutional System: No distress. No tremulousness. Head: Normocephalic, atraumatic. Ears, Nose and Throat System: No pain or tenderness. No epistaxis or discharge Eyes System: Pupils equal, round, and reactive. Extraocular muscles intact. Neck: Supple, without adenopathy, No jugular venous distention. Respiratory System: Chest clear to auscultation. Cardiovascular System: Heart with regular rate and rhythm. No murmur. GI System: Abdomen soft, nontender. Normo active bowel sounds present. Musculoskeletal System: limbs with no pedal edema. Full distal pulses. Neurological System: No discernable sensory deficit. No aphasia Psychiatric System: Conversation is rational Results - Labs CBC & BMP: 05/23/17 06:48 05/23/17 06:48 Lab Results: I have reviewed the past 24 hour labs
--- NOTE | 2017-05-23 14:23 | Physician Query Form ---
CLICK EDIT DOCUMENT TO SELECT QUERY ANSWER --> OK --> SIGN Heidy Matias RN Clinical Quality Management Coordinator W) [phone] (f) [phone] [email or web address] PROVIDERS: Make your selection(s) from the choices in EACH section by typing an "x" and enter comments in the comment section. Please use your independent medical judgment in providing your response. This request does not imply that any particular answer is desired or expected. CLINICAL INDICATORS: (Providers should not edit this section) Based on documentation of "history of CHF. No overt signs of acute congestive heart failure at this time". [id number], Echo showed EF of 20%. Pt. treated with Lasix as home medication. Please provide further specificity regarding CHF. TYPE: ( X) Systolic (HFrEF - heart failure with reduced systolic function/EF) ( ) Diastolic (HFpEF - heart failure with preserved systolic function/EF) ( ) Combined Systolic/Diastolic ( ) Other, please specify: ( ) Clinically unable to determine ( ) The patient does NOT have CHF COMMENTS: PLEASE ALSO DOCUMENT RESPONSE IN PROGRESS NOTES AND/OR DISCHARGE SUMMARY Use of terms such as suspected, likely, or probable (associated with a specific diagnosis that is being evaluated, monitored, or treated as if it exists) are acceptable and can be restated in the discharge summary if not ruled out. MTDD
--- NOTE | 2017-05-23 14:37 | Cardiology Progress Note ---
<Carmen Garner - Last Filed: 05/23/17 14:33> Assessment and Plan (1) Atypical chest pain Status: Acute Assessment and plan: See plan of care listed below. Current Visit: Yes (2) Nonischemic cardiomyopathy Status: Chronic Assessment and plan: See plan of care listed below. Current Visit: Yes (3) Left ventricular apical thrombus Status: Acute Assessment and plan: See plan of care listed below. Current Visit: Yes (4) History of CVA (cerebrovascular accident) Status: Chronic Assessment and plan: See plan of care listed below. Current Visit: Yes (5) Hypertension Status: Chronic Assessment and plan: See plan of care listed below. Current Visit: Yes (6) Diabetes Status: Chronic Assessment and plan: See plan of care listed below. Current Visit: Yes (7) UTI (urinary tract infection) Status: Acute Assessment and plan: See plan of care listed below. Current Visit: Yes (8) Dyslipidemia Status: Chronic Assessment and plan: See plan of care listed below. Current Visit: Yes Cardiology - PN: Subj Interval history: Production Superintendent Hydro: Dr. Nicole SUMMARY Ms. Smith, 56-year-old -Citizen Of [place] female with history of nonischemic cardiomyopathy, hypertension, diabetes and CVA. Patient underwent cardiac catheterization in 2007 and was noted to have normal coronary arteries. She has refused biventricular AICD previously. She has trouble communicating she has had CVA in the past. She is a very poor historian because of this. Patient presented to [facility] with complaints of weakness and atypical chest pain. Cardiology was consulted to further evaluate her atypical chest pain. Trivial troponin, flat in nature. MAY 23, 2017 UPDATE Patient was seen and examined on the telemetry unit. She denies chest pain, heaviness and tightness. Echocardiogram reveals left ventricular ejection fraction of 20%. And also revealed left ventricular apical thrombus measuring 2.11 cm x 2.89 cm. Subsequently, heparin infusion was initiated. PAP of 57 mmHg. Borderline hypotension noted. Beta-heike and FARHAN inhibitor are currently on hold. BNP improved to 1292. Entering the room patient was lying flat in no acute distress. No orthopnea noted. Troponin is trivial today 0.091. Labs have been reviewed. I will discuss further with Dr. Oseguera and await his additional recommendations. ASSESSMENT/PLAN: 1. AYPICAL CHEST PAIN - Trivial troponins, flat in nature. Patient is no longer experiencing chest pain, heaviness or tightness. However, patient is a poor historian as she has had a previous CVA. Patient's last heart catheterization was performed 2007. At that time she had normal coronary arteries. At this point, I will continue aspirin. Reinitiate beta- blockade when her blood pressure will allow. Continue to cycle cardiac biomarkers and EKG further discuss with Dr. Oseguera and await his additional recommendations regarding the need for further cardiac workup. 2. NONISCHEMIC CARDIOMYOPTHY - Echocardiogram reveals ejection fraction of 20% . This is not a new diagnosis. According to Dr. Nicole last clinic note she has refused biventricular AICD previously. Will reinitiate patient's home dose of Aldactone. Continue p.o. Lasix. Beta-heike and FARHAN inhibitor are currently as his blood pressure will not tolerate. Will reinitiate these medications when able. 3. LV APICAL THROMBUS - Continue IV heparin protocol. Will further discuss with Dr. Oseguera and await his additional recommendations. 4. HISTORY OF CVA - Continue Plavix. 5. HYPERTENSION - Patient has been borderline hypotensive. For this reason, her lisinopril and beta-heike are currently on hold. Will reinitiate these medications when her blood pressure will allow. 6. DIABETES - Defer management of this to attending. 7. UTI - Continue current plan of care with antibiotics. Management per attending. 8. DYSLIPIDEMIA - Continue lipid-lowering agent. Lipid panel added to a.m. labs. Exam (Progress Note) - Constitutional Vitals: Period Temp Pulse Resp BP Sys/Gee Pulse Ox Last 24 Hr 96.8 F-98.5 F 72-103 16-20 84-156/48-82 93-99 Exam: General: Appears well with no apparent distress. Appears comfortable. HEENT: PERRL, normocephalic, atraumatic. Mucous membranes moist. Neck: No JVD/HJR, no thyromegaly or lymphadenopathy noted. No carotid bruit appreciated Cardiac: Regular rate and rhythm. No murmur rub or gallop. Lungs: Clear to auscultation without accessory muscle use to assist the respiratory pattern. Not requiring oxygen. Abdomen: Soft, bowel sounds normoactive. Nontender and nondistended. No abdominal bruit or thrill noted. No masses noted. Extremities: No clubbing, cyanosis noted. No edema noted. Upper extremity pulses 2+. Lower extremity pulses 2+. Capillary refill less than 3 seconds. Skin: No unusual lesions or rashes. No skin breakdown appreciated. Neuro: Left-sided hemiparesis noted. Result/EKG - Labs CBC & BMP: 05/23/17 06:48 05/23/17 06:48 Lab Results: I have reviewed the past 24 hour labs Labs: Laboratory Results - last 24 hr 05/22/17 05/22/17 05/22/17 14:51 15:53 19:36 WBC RBC Hgb Hct MCV MCH MCHC RDW Plt Count MPV Neut % (Auto) Lymph % (Auto) Dale % (Auto) Eos % (Auto) Baso % (Auto) Neut # (Auto) Lymph # (Auto) Dale # (Auto) Eos # (Auto) Baso # (Auto) Immature Gran % Nucleated RBC % Immature Gran # Nucleated RBCs # Circ Anticoag PTT 24.7 Sodium Potassium Chloride Carbon Dioxide Anion Gap BUN Creatinine GFR Calculation BUN/Creatinine Ratio Glucose POC Glucose 215 H 287 H Calculated Osmolality Calcium Magnesium Total Creatine Kinase CK-MB (CK-2) Troponin I B-Natriuretic Peptide 05/22/17 05/23/17 05/23/17 21:38 00:25 06:48 WBC 7.5 RBC 4.26 Hgb 11.3 L Hct 35.8 MCV 84.0 L MCH 27 MCHC 31.6 L RDW 16.8 Plt Count 180 MPV 10.8 Neut % (Auto) 59.0 Lymph % (Auto) 32.4 Dale % (Auto) 7.1 Eos % (Auto) 0.7 Baso % (Auto) 0.4 Neut # (Auto) 4.4 Lymph # (Auto) 2.4 Dale # (Auto) 0.5 Eos # (Auto) 0.1 Baso # (Auto) 0.0 Immature Gran % 0.4 Nucleated RBC % 0.0 Immature Gran # 0.03 Nucleated RBCs # 0.00 Circ Anticoag PTT 40.4 H Sodium Potassium Chloride Carbon Dioxide Anion Gap BUN Creatinine GFR Calculation BUN/Creatinine Ratio Glucose POC Glucose 273 H Calculated Osmolality Calcium Magnesium Total Creatine Kinase CK-MB (CK-2) Troponin I B-Natriuretic Peptide 05/23/17 05/23/17 05/23/17 06:48 06:48 06:48 WBC RBC Hgb Hct MCV MCH MCHC RDW Plt Count MPV Neut % (Auto) Lymph % (Auto) Dale % (Auto) Eos % (Auto) Baso % (Auto) Neut # (Auto) Lymph # (Auto) Dale # (Auto) Eos # (Auto) Baso # (Auto) Immature Gran % Nucleated RBC % Immature Gran # Nucleated RBCs # Circ Anticoag PTT 48.9 H D Sodium 144 Potassium 3.9 Chloride 112 H Carbon Dioxide 23 Anion Gap 12.9 BUN 17 Creatinine 1.10 H GFR Calculation 79 BUN/Creatinine Ratio 15.00 Glucose 239 H POC Glucose Calculated Osmolality 295.8 Calcium 8.5 Magnesium 1.8 Total Creatine Kinase 32 D CK-MB (CK-2) 1.1 Troponin I 0.091 H B-Natriuretic Peptide 1292 H 05/23/17 05/23/17 08:34 12:09 WBC RBC Hgb Hct MCV MCH MCHC RDW Plt Count MPV Neut % (Auto) Lymph % (Auto) Dale % (Auto) Eos % (Auto) Baso % (Auto) Neut # (Auto) Lymph # (Auto) Dale # (Auto) Eos # (Auto) Baso # (Auto) Immature Gran % Nucleated RBC % Immature Gran # Nucleated RBCs # Circ Anticoag PTT Sodium Potassium Chloride Carbon Dioxide Anion Gap BUN Creatinine GFR Calculation BUN/Creatinine Ratio Glucose POC Glucose 239 H 212 H Calculated Osmolality Calcium Magnesium Total Creatine Kinase CK-MB (CK-2) Troponin I B-Natriuretic Peptide <Ata Oseguera - Last Filed: 05/23/17 17:16> Exam (Progress Note) - Constitutional Vitals: Period Temp Pulse Resp BP Sys/Gee Pulse Ox Last 24 Hr 96.9 F-98.5 F 72-99 16-20 84-108/48-72 93-99 Result/EKG - Labs CBC & BMP: 05/23/17 06:48 05/23/17 06:48 Labs: Laboratory Results - last 24 hr 05/22/17 05/22/17 05/23/17 19:36 21:38 00:25 WBC RBC Hgb Hct MCV MCH MCHC RDW Plt Count MPV Neut % (Auto) Lymph % (Auto) Dale % (Auto) Eos % (Auto) Baso % (Auto) Neut # (Auto) Lymph # (Auto) Dale # (Auto) Eos # (Auto) Baso # (Auto) Immature Gran % Nucleated RBC % Immature Gran # Nucleated RBCs # Circ Anticoag PTT 40.4 H Sodium Potassium Chloride Carbon Dioxide Anion Gap BUN Creatinine GFR Calculation BUN/Creatinine Ratio Glucose POC Glucose 287 H 273 H Calculated Osmolality Calcium Magnesium Total Creatine Kinase CK-MB (CK-2) Troponin I B-Natriuretic Peptide 05/23/17 05/23/17 05/23/17 06:48 06:48 06:48 WBC 7.5 RBC 4.26 Hgb 11.3 L Hct 35.8 MCV 84.0 L MCH 27 MCHC 31.6 L RDW 16.8 Plt Count 180 MPV 10.8 Neut % (Auto) 59.0 Lymph % (Auto) 32.4 Dale % (Auto) 7.1 Eos % (Auto) 0.7 Baso % (Auto) 0.4 Neut # (Auto) 4.4 Lymph # (Auto) 2.4 Dale # (Auto) 0.5 Eos # (Auto) 0.1 Baso # (Auto) 0.0 Immature Gran % 0.4 Nucleated RBC % 0.0 Immature Gran # 0.03 Nucleated RBCs # 0.00 Circ Anticoag PTT Sodium 144 Potassium 3.9 Chloride 112 H Carbon Dioxide 23 Anion Gap 12.9 BUN 17 Creatinine 1.10 H GFR Calculation 79 BUN/Creatinine Ratio 15.00 Glucose 239 H POC Glucose Calculated Osmolality 295.8 Calcium 8.5 Magnesium 1.8 Total Creatine Kinase 32 D CK-MB (CK-2) 1.1 Troponin I 0.091 H B-Natriuretic Peptide 1292 H 05/23/17 05/23/17 05/23/17 06:48 08:34 12:09 WBC RBC Hgb Hct MCV MCH MCHC RDW Plt Count MPV Neut % (Auto) Lymph % (Auto) Dale % (Auto) Eos % (Auto) Baso % (Auto) Neut # (Auto) Lymph # (Auto) Dale # (Auto) Eos # (Auto) Baso # (Auto) Immature Gran % Nucleated RBC % Immature Gran # Nucleated RBCs # Circ Anticoag PTT 48.9 H D Sodium Potassium Chloride Carbon Dioxide Anion Gap BUN Creatinine GFR Calculation BUN/Creatinine Ratio Glucose POC Glucose 239 H 212 H Calculated Osmolality Calcium Magnesium Total Creatine Kinase CK-MB (CK-2) Troponin I B-Natriuretic Peptide 05/23/17 05/23/17 13:36 16:09 WBC RBC Hgb Hct MCV MCH MCHC RDW Plt Count MPV Neut % (Auto) Lymph % (Auto) Dale % (Auto) Eos % (Auto) Baso % (Auto) Neut # (Auto) Lymph # (Auto) Dale # (Auto) Eos # (Auto) Baso # (Auto) Immature Gran % Nucleated RBC % Immature Gran # Nucleated RBCs # Circ Anticoag PTT 50.2 H Sodium Potassium Chloride Carbon Dioxide Anion Gap BUN Creatinine GFR Calculation BUN/Creatinine Ratio Glucose POC Glucose 185 H Calculated Osmolality Calcium Magnesium Total Creatine Kinase CK-MB (CK-2) Troponin I B-Natriuretic Peptide
[2017-05-23] MEDS: ASPIRIN EC 81 MG TABLET PO SCH (15:34)
[2017-05-23] MEDS: INSULIN GLARGINE 100 UNIT/ML SUBCUT SCH (18:11)
[2017-05-23] MEDS: ROSUVASTATIN 20 MG TABLET PO SCH (21:59)
[2017-05-23] MEDS: tiZANidine 4 MG TABLET PO SCH (22:00)
[2017-05-24 05:18] LABS: Basophils % 0.2 % (0.0-0.8); Eosinophils % 0.4 % (0.00-10.9); Hematocrit 38.1 VOL% (35.7-47.0); Hemoglobin 11.8 GM/DL (12.0-16.0); Immature Granulocytes % 0.4 %; Immature Granulocytes Absolute 0.03 #; Lymphocytes # 2.4 10*3/uL (1.4-4.0); Lymphocytes % 29.4 % (21.3-54.2); Mean Corpuscular Hemoglobin 26 PG (27-34); Mean Corpuscular Volume 84.9 FL (87-102); Mean Platelet Volume 10.7 FL (9.6-12.0); Monocytes # 0.6 10*3/uL (0.11-0.8); Monocytes % 6.7 % (1.7-12.7); NRBC # 0.03 10*3/uL; Neutrophils # 5.2 10*3/uL (1.4-7.4); Neutrophils % 62.9 % (38.7-73.9); Platelet Count 206 T/CUMM (130-400); Red Blood Count 4.49 MC/CUMM (3.8-5.5); Red Cell Distribution Width 16.8 % (9.3-17.3); White Blood Count 8.2 T/CUMM (4-12)
[2017-05-24 06:04] LABS: Calcium 8.4 MG/DL (8.5-10.1); Osmolality,Calculated 293.8 MOS/KG (273-304); Potassium 3.6 MMOL/L (3.5-5.1)
[2017-05-24 06:05] LABS: Risk Ratio 3.21; VLDL CHOLESTEROL 19.6 MG/DL
[2017-05-24 06:26] LABS: Free T4 (Free Thyroxine) 1.02 NG/DL (0.76-1.46); Thyroid Stimulating Hormone 0.83 uIU/ml (0.358-3.74)
[2017-05-24] MEDS: HEPARIN DRIP 25,000 UNITS/500 ML PREMIX IV SCH ×2 (06:37→13:33)
[2017-05-24] MEDS: INSULIN LISPRO 100 UNIT/ML SUBCUT SCH ×2 (09:11→18:31)
[2017-05-24] MEDS: CIPROFLOXACIN 500 MG TABLET PO SCH ×2 (09:47→21:12)
[2017-05-24] MEDS: ASPIRIN EC 81 MG TABLET PO SCH (09:47)
[2017-05-24] MEDS: carBAMazepine 200 MG TABLET PO SCH ×2 (09:47→21:12)
[2017-05-24] MEDS: FUROSEMIDE 40 MG TABLET PO SCH ×3 (09:48→21:12)
[2017-05-24] MEDS: CLOPIDOGREL 75 MG TABLET PO SCH (09:48)
[2017-05-24] MEDS: CYANOCOBALAMIN 500 MCG TABLET PO SCH (09:49)
[2017-05-24] MEDS: SPIRONOLACTONE 50 MG TABLET PO SCH (09:49)
[2017-05-24] MEDS: PANTOPRAZOLE 40 MG TABLET PO SCH (09:50)
[2017-05-24] MEDS: FLUTICASONE 50 MCG NASAL SPRAY 16 GM BOTTLE BOTH NARES SCH (09:55)
--- NOTE | 2017-05-24 13:30 | Cardiology Progress Note ---
<Carmen Garner - Last Filed: 05/24/17 14:52> Assessment and Plan (1) Atypical chest pain Status: Acute Assessment and plan: See plan of care listed below. Current Visit: Yes (2) Nonischemic cardiomyopathy Status: Chronic Assessment and plan: See plan of care listed below. Current Visit: Yes (3) Left ventricular apical thrombus Status: Acute Assessment and plan: See plan of care listed below. Current Visit: Yes (4) History of CVA (cerebrovascular accident) Status: Chronic Assessment and plan: See plan of care listed below. Current Visit: Yes (5) Hypertension Status: Chronic Assessment and plan: See plan of care listed below. Current Visit: Yes (6) Diabetes Status: Chronic Assessment and plan: See plan of care listed below. Current Visit: Yes (7) UTI (urinary tract infection) Status: Acute Assessment and plan: See plan of care listed below. Current Visit: Yes (8) Dyslipidemia Status: Chronic Assessment and plan: See plan of care listed below. Current Visit: Yes Cardiology - PN: Subj Interval history: Landscaping Specialist: Dr. Nicole SUMMARY Ms. Smith, 56-year-old -[place] female with history of nonischemic cardiomyopathy, hypertension, diabetes and CVA. Patient underwent cardiac catheterization in 2007 and was noted to have normal coronary arteries. She has refused biventricular AICD previously. She has trouble communicating she has had CVA in the past. She is a very poor historian because of this. Patient presented to [facility] with complaints of weakness and atypical chest pain. Cardiology was consulted to further evaluate her atypical chest pain. Trivial troponin, flat in nature. MAY 24, 2017 UPDATE Patient was seen and examined on the telemetry unit. She denies chest pain, heaviness and tightness. Echocardiogram reveals left ventricular ejection fraction of 20%. And also revealed left ventricular apical thrombus measuring 2.11 cm x 2.89 cm. IV heparin infusing. Family is at bedside. Vital signs are stable. Labs are reviewed. I will discuss with Dr. Oseguera await his additional recommendations. ASSESSMENT/PLAN: 1. AYPICAL CHEST PAIN - Trivial troponins, flat in nature. Patient is no longer experiencing chest pain, heaviness or tightness. However, patient is a poor historian as she has had a previous CVA. Patient's last heart catheterization was performed 2007. At that time she had normal coronary arteries. At this point, I will continue aspirin. Low-dose beta- blockade has been reinitiated as her blood pressure has improved today. We will increase this as her blood pressure will tolerate. I will further discuss with Dr. Oseguera and await his additional recommendations. 2. NONISCHEMIC CARDIOMYOPTHY - Echocardiogram reveals ejection fraction of 20% . This is not a new diagnosis. According to Dr. Nicole last clinic note she has refused biventricular AICD previously. Continue p.o. Lasix and Aldactone. Patient's blood pressure has improved. I will reinitiate a low-dose beta-heike. Will monitor her blood pressure closely and increase as she will tolerate. We will continue to hold FARHAN inhibitor, will reinitiate when her blood pressure will allow. 3. LV APICAL THROMBUS - I will transition patient to p.o. anticoagulation today. Eliquis 5 mg twice daily has been initiated. We will monitor patient's CBC daily. 4. HISTORY OF CVA - At this point, we will discontinue patient's Plavix and initiate Eliquis as this will treat LV apical thrombus as well as prevent recurrent CVA. 5. HYPERTENSION - Blood pressure is better today and will tolerate reinitiation of patient's beta-blockade. Lisinopril continues to be on hold will reinitiate this once her blood pressure will allow. 6. DIABETES - Defer management of this to attending. 7. UTI - Continue current plan of care with antibiotics. Management per attending. 8. DYSLIPIDEMIA - Continue lipid-lowering agent. Lipid panel reviewed. Exam (Progress Note) - Constitutional Vitals: Period Temp Pulse Resp BP Sys/Gee Pulse Ox Last 24 Hr 96.6 F-98.2 F 79-96 18-30 98-131/61-88 93-99 Exam: General: Appears well with no apparent distress. Appears comfortable. HEENT: PERRL, normocephalic, atraumatic. Mucous membranes moist. Neck: No JVD/HJR, no thyromegaly or lymphadenopathy noted. No carotid bruit appreciated Cardiac: Regular rate and rhythm. No murmur rub or gallop. Lungs: Clear to auscultation without accessory muscle use to assist the respiratory pattern. Not requiring oxygen. Abdomen: Soft, bowel sounds normoactive. Nontender and nondistended. No abdominal bruit or thrill noted. No masses noted. Extremities: No clubbing, cyanosis noted. No edema noted. Upper extremity pulses 2+. Lower extremity pulses 2+. Capillary refill less than 3 seconds. Skin: No unusual lesions or rashes. No skin breakdown appreciated. Neuro: Left-sided hemiparesis noted. Result/EKG - Labs CBC & BMP: 05/24/17 04:46 05/24/17 04:46 Lab Results: I have reviewed the past 24 hour labs Labs: Laboratory Results - last 24 hr 05/23/17 05/23/17 05/23/17 13:36 16:09 19:25 WBC RBC Hgb Hct MCV MCH MCHC RDW Plt Count MPV Neut % (Auto) Lymph % (Auto) [place] % (Auto) Eos % (Auto) Baso % (Auto) Neut # (Auto) Lymph # (Auto) [place] # (Auto) Eos # (Auto) Baso # (Auto) Immature Gran % Nucleated RBC % Immature Gran # Nucleated RBCs # Circ Anticoag PTT 50.2 H 53.3 H Sodium Potassium Chloride Carbon Dioxide Anion Gap BUN Creatinine GFR Calculation BUN/Creatinine Ratio Glucose POC Glucose 185 H Calculated Osmolality Calcium Magnesium Triglycerides Cholesterol LDL Cholesterol VLDL Cholesterol HDL Cholesterol Heart Disease Risk Ratio Free T4 TSH 3rd Generation 05/23/17 05/24/17 05/24/17 20:58 04:46 04:46 WBC 8.2 RBC 4.49 Hgb 11.8 L Hct 38.1 MCV 84.9 L MCH 26 L MCHC 31.0 L RDW 16.8 Plt Count 206 MPV 10.7 Neut % (Auto) 62.9 Lymph % (Auto) 29.4 [place] % (Auto) 6.7 Eos % (Auto) 0.4 Baso % (Auto) 0.2 Neut # (Auto) 5.2 Lymph # (Auto) 2.4 [place] # (Auto) 0.6 Eos # (Auto) 0.0 Baso # (Auto) 0.0 Immature Gran % 0.4 Nucleated RBC % 0.4 Immature Gran # 0.03 Nucleated RBCs # 0.03 Circ Anticoag PTT Sodium Potassium Chloride Carbon Dioxide Anion Gap BUN Creatinine GFR Calculation BUN/Creatinine Ratio Glucose POC Glucose 183 H Calculated Osmolality Calcium Magnesium Triglycerides 98 Cholesterol 122 LDL Cholesterol 70.0 VLDL Cholesterol 19.6 HDL Cholesterol 38 L Heart Disease Risk Ratio 3.21 Free T4 TSH 3rd Generation 05/24/17 05/24/17 05/24/17 04:46 04:46 07:37 WBC RBC Hgb Hct MCV MCH MCHC RDW Plt Count MPV Neut % (Auto) Lymph % (Auto) [place] % (Auto) Eos % (Auto) Baso % (Auto) Neut # (Auto) Lymph # (Auto) [place] # (Auto) Eos # (Auto) Baso # (Auto) Immature Gran % Nucleated RBC % Immature Gran # Nucleated RBCs # Circ Anticoag PTT Sodium 144 Potassium 3.6 Chloride 112 H Carbon Dioxide 20 L Anion Gap 15.6 H BUN 19 H Creatinine 1.10 H GFR Calculation 80 BUN/Creatinine Ratio 17.00 Glucose 205 H POC Glucose 197 H Calculated Osmolality 293.8 Calcium 8.4 L Magnesium 2.0 Triglycerides Cholesterol LDL Cholesterol VLDL Cholesterol HDL Cholesterol Heart Disease Risk Ratio Free T4 1.02 TSH 3rd Generation 0.830 05/24/17 12:02 WBC RBC Hgb Hct MCV MCH MCHC RDW Plt Count MPV Neut % (Auto) Lymph % (Auto) [place] % (Auto) Eos % (Auto) Baso % (Auto) Neut # (Auto) Lymph # (Auto) [place] # (Auto) Eos # (Auto) Baso # (Auto) Immature Gran % Nucleated RBC % Immature Gran # Nucleated RBCs # Circ Anticoag PTT Sodium Potassium Chloride Carbon Dioxide Anion Gap BUN Creatinine GFR Calculation BUN/Creatinine Ratio Glucose POC Glucose 149 H Calculated Osmolality Calcium Magnesium Triglycerides Cholesterol LDL Cholesterol VLDL Cholesterol HDL Cholesterol Heart Disease Risk Ratio Free T4 TSH 3rd Generation <Ata Oseguera - Last Filed: 05/24/17 16:57> Exam (Progress Note) - Constitutional Vitals: Period Temp Pulse Resp BP Sys/Gee Pulse Ox Last 24 Hr 96.6 F-98.2 F 79-96 18-20 114-131/62-88 94-99 Result/EKG - Labs CBC & BMP: 05/24/17 04:46 05/24/17 04:46 Labs: Laboratory Results - last 24 hr 05/23/17 05/23/17 05/24/17 19:25 20:58 04:46 WBC RBC Hgb Hct MCV MCH MCHC RDW Plt Count MPV Neut % (Auto) Lymph % (Auto) [place] % (Auto) Eos % (Auto) Baso % (Auto) Neut # (Auto) Lymph # (Auto) [place] # (Auto) Eos # (Auto) Baso # (Auto) Immature Gran % Nucleated RBC % Immature Gran # Nucleated RBCs # Circ Anticoag PTT 53.3 H Sodium Potassium Chloride Carbon Dioxide Anion Gap BUN Creatinine GFR Calculation BUN/Creatinine Ratio Glucose POC Glucose 183 H Calculated Osmolality Calcium Magnesium Triglycerides 98 Cholesterol 122 LDL Cholesterol 70.0 VLDL Cholesterol 19.6 HDL Cholesterol 38 L Heart Disease Risk Ratio 3.21 Free T4 TSH 3rd Generation 05/24/17 05/24/17 05/24/17 04:46 04:46 04:46 WBC 8.2 RBC 4.49 Hgb 11.8 L Hct 38.1 MCV 84.9 L MCH 26 L MCHC 31.0 L RDW 16.8 Plt Count 206 MPV 10.7 Neut % (Auto) 62.9 Lymph % (Auto) 29.4 [place] % (Auto) 6.7 Eos % (Auto) 0.4 Baso % (Auto) 0.2 Neut # (Auto) 5.2 Lymph # (Auto) 2.4 [place] # (Auto) 0.6 Eos # (Auto) 0.0 Baso # (Auto) 0.0 Immature Gran % 0.4 Nucleated RBC % 0.4 Immature Gran # 0.03 Nucleated RBCs # 0.03 Circ Anticoag PTT Sodium 144 Potassium 3.6 Chloride 112 H Carbon Dioxide 20 L Anion Gap 15.6 H BUN 19 H Creatinine 1.10 H GFR Calculation 80 BUN/Creatinine Ratio 17.00 Glucose 205 H POC Glucose Calculated Osmolality 293.8 Calcium 8.4 L Magnesium 2.0 Triglycerides Cholesterol LDL Cholesterol VLDL Cholesterol HDL Cholesterol Heart Disease Risk Ratio Free T4 1.02 TSH 3rd Generation 0.830 05/24/17 05/24/17 07:37 12:02 WBC RBC Hgb Hct MCV MCH MCHC RDW Plt Count MPV Neut % (Auto) Lymph % (Auto) [place] % (Auto) Eos % (Auto) Baso % (Auto) Neut # (Auto) Lymph # (Auto) [place] # (Auto) Eos # (Auto) Baso # (Auto) Immature Gran % Nucleated RBC % Immature Gran # Nucleated RBCs # Circ Anticoag PTT Sodium Potassium Chloride Carbon Dioxide Anion Gap BUN Creatinine GFR Calculation BUN/Creatinine Ratio Glucose POC Glucose 197 H 149 H Calculated Osmolality Calcium Magnesium Triglycerides Cholesterol LDL Cholesterol VLDL Cholesterol HDL Cholesterol Heart Disease Risk Ratio Free T4 TSH 3rd Generation
--- NOTE | 2017-05-24 14:12 | Hospitalist Progress Note ---
Assessment and Plan (1) Nonischemic cardiomyopathy Problem details: Normal coronaries in 2007. Significant left ventricular dysfunction, pulmonary hypertension. Status: Chronic Assessment and plan: Ejection fraction 25-30% on echo January 2017. 05/22/17 echo shows: IMPRESSIONS Moderately increased left ventricular cavity size. Moderate left ventricular hypertrophy. Left ventricular ejection fraction is estimated at 20 %. Left ventricular apical thrombus measuring 2.11cm x 2.89cm. Mildly increased right ventricular size. Moderately increased right atrial size. Moderately increased left atrial size. Morphologically normal mitral valve. Mild-moderate mitral valve regurgitation. Aortic valve sclerosis without stenosis. [id number] aortic valve regurgitation. Morphologically normal tricuspid valve. [id number] tricuspid valve regurgitation. Tricuspid regurgitation velocities suggest a PAP of 57 mmHg. Morphologically normal pulmonic valve without significant stenosis. There is no pulmonic regurgitation. Normal pericardium without effusion. Normal ascending aorta dimension. Started on heparin drip. Current Visit: No (2) UTI (urinary tract infection) Status: Acute Assessment and plan: E. coli noted in urine culture. Started on Cipro. Current Visit: No Qualifiers: Urinary tract infection type: acute cystitis (3) Chest pain Status: Resolved Current Visit: Yes (4) Diabetes mellitus Status: Chronic Current Visit: Yes Qualifiers: Diabetes mellitus type: type 2 (5) History of stroke Status: Chronic Current Visit: No Hospitalist: Subjective Interval history: Patient seen and examined. No acute events overnight. Case discussed with nursing staff. Labs reviewed. The patient remains on heparin drip. Plan to start oral anticoagulation with either Coumadin or other oral anticoagulant soon -cardiology recommendations. Exam - Constitutional Vitals: Period Temp Pulse Resp BP Sys/Gee Pulse Ox Last 24 Hr 96.6 F-98.2 F 79-96 18-30 98-131/61-88 93-99 Exam: Constitutional System: No distress. No tremulousness. Head: Normocephalic, atraumatic. Ears, Nose and Throat System: No pain or tenderness. No epistaxis or discharge Eyes System: Pupils equal, round, and reactive. Extraocular muscles intact. Neck: Supple, without adenopathy, No jugular venous distention. Respiratory System: Chest clear to auscultation. Cardiovascular System: Heart with regular rate and rhythm. No murmur. GI System: Abdomen soft, nontender. Normo active bowel sounds present. Musculoskeletal System: limbs with no pedal edema. Full distal pulses. Neurological System: No discernable sensory deficit. No aphasia Psychiatric System: Conversation is rational Results - Labs CBC & BMP: 05/24/17 04:46 05/24/17 04:46 Lab Results: I have reviewed the past 24 hour labs
[2017-05-24] MEDS: INSULIN GLARGINE 100 UNIT/ML SUBCUT SCH (18:32)
[2017-05-24] MEDS: tiZANidine 4 MG TABLET PO SCH (21:12)
[2017-05-24] MEDS: ROSUVASTATIN 20 MG TABLET PO SCH (21:12)
[2017-05-24] MEDS: SACUBITRIL/VALSARTAN 49-51 MG TABLET PO SCH (21:12)
[2017-05-24] MEDS: CARVEDILOL 3.125 MG TABLET PO SCH (21:12)
[2017-05-24] MEDS: APIXABAN 5 MG TABLET PO SCH (21:12)
[2017-05-25 04:54] LABS: Basophils % 0.5 % (0.0-0.8); Eosinophils # 0.1 10*3/uL (0.0-0.87); Eosinophils % 0.8 % (0.00-10.9); Hematocrit 35.4 VOL% (35.7-47.0); Hemoglobin 11.2 GM/DL (12.0-16.0); Immature Granulocytes % 0.2 %; Immature Granulocytes Absolute 0.01 #; Lymphocytes # 1.7 10*3/uL (1.4-4.0); Lymphocytes % 25.8 % (21.3-54.2); Mean Corpuscular HGB Conc 31.6 GM/DL (32-36); Mean Corpuscular Hemoglobin 27 PG (27-34); Mean Corpuscular Volume 84.3 FL (87-102); Mean Platelet Volume 10.5 FL (9.6-12.0); Monocytes # 0.4 10*3/uL (0.11-0.8); Monocytes % 6.1 % (1.7-12.7); NRBC # 0.02 10*3/uL; Neutrophils # 4.4 10*3/uL (1.4-7.4); Neutrophils % 66.6 % (38.7-73.9); Platelet Count 217 T/CUMM (130-400); White Blood Count 6.5 T/CUMM (4-12)
[2017-05-25 05:29] LABS: Calcium 8.3 MG/DL (8.5-10.1); Osmolality,Calculated 292.7 MOS/KG (273-304); Potassium 3.5 MMOL/L (3.5-5.1)
[2017-05-25] MEDS: INSULIN LISPRO 100 UNIT/ML SUBCUT SCH (09:06)
[2017-05-25] MEDS: ASPIRIN EC 81 MG TABLET PO SCH (09:43)
[2017-05-25] MEDS: FUROSEMIDE 40 MG TABLET PO SCH (09:43)
[2017-05-25] MEDS: CYANOCOBALAMIN 500 MCG TABLET PO SCH (09:43)
[2017-05-25] MEDS: CARVEDILOL 3.125 MG TABLET PO SCH (09:44)
[2017-05-25] MEDS: SPIRONOLACTONE 50 MG TABLET PO SCH (09:44)
[2017-05-25] MEDS: APIXABAN 5 MG TABLET PO SCH (09:44)
[2017-05-25] MEDS: PANTOPRAZOLE 40 MG TABLET PO SCH (09:45)
[2017-05-25] MEDS: carBAMazepine 200 MG TABLET PO SCH (09:45)
[2017-05-25] MEDS: CIPROFLOXACIN 500 MG TABLET PO SCH (09:45)
[2017-05-25] MEDS: SACUBITRIL/VALSARTAN 49-51 MG TABLET PO SCH (09:46)
[2017-05-25] MEDS: FLUTICASONE 50 MCG NASAL SPRAY 16 GM BOTTLE BOTH NARES SCH (09:47)
--- NOTE | 2017-05-25 10:29 | Event Note ---
Please see the discharge summary started on 05/22/2017 that was updated today to reflect the remainder of the patient's hospital course.
[2017-05-25 12:31] VITALS: BP 123/76
--- NOTE | 2017-05-25 13:23 | Cardiology Progress Note ---
<Carmen Garner - Last Filed: 05/25/17 13:17> Assessment and Plan (1) Atypical chest pain Status: Acute Assessment and plan: See plan of care listed below. Current Visit: Yes (2) Nonischemic cardiomyopathy Status: Chronic Assessment and plan: See plan of care listed below. Current Visit: Yes (3) Left ventricular apical thrombus Status: Acute Assessment and plan: See plan of care listed below. Current Visit: Yes (4) History of CVA (cerebrovascular accident) Status: Chronic Assessment and plan: See plan of care listed below. Current Visit: Yes (5) Hypertension Status: Chronic Assessment and plan: See plan of care listed below. Current Visit: Yes (6) Diabetes Status: Chronic Assessment and plan: See plan of care listed below. Current Visit: Yes (7) UTI (urinary tract infection) Status: Acute Assessment and plan: See plan of care listed below. Current Visit: Yes (8) Dyslipidemia Status: Chronic Assessment and plan: See plan of care listed below. Current Visit: Yes Cardiology - PN: Subj Interval history: Hand Kiss Setter: Dr. Nicole SUMMARY Ms. Smith, 56-year-old -[place] female with history of nonischemic cardiomyopathy, hypertension, diabetes and CVA. Patient underwent cardiac catheterization in 2007 and was noted to have normal coronary arteries. She has refused biventricular AICD previously. She has trouble communicating she has had CVA in the past. She is a very poor historian because of this. Patient presented to [facility] with complaints of weakness and atypical chest pain. Cardiology was consulted to further evaluate her atypical chest pain. Trivial troponin, flat in nature. MAY 24, 2017 UPDATE Patient was seen and examined on the telemetry unit. She denies chest pain, heaviness and tightness. Echocardiogram reveals left ventricular ejection fraction of 20%. And also revealed left ventricular apical thrombus measuring 2.11 cm x 2.89 cm. Patient was transitioned to p.o. Eliquis yesterday. She is tolerating well. Nurse is at bedside during discharge planning. Hospital medicine has discharged patient on both Plavix and Eliquis. Patient was instructed to discontinue Plavix and discontinue Eliquis. Patient verbalized understanding of this. She will follow with Dr. Nicole in 2 weeks. Family is at bedside and verbalized understanding of discharge instructions. ASSESSMENT/PLAN: 1. AYPICAL CHEST PAIN - Patient has been without any further complaints of chest discomfort. Patient will follow-up with Dr. Nicole in 2 weeks. 2. NONISCHEMIC CARDIOMYOPTHY - Echocardiogram reveals ejection fraction of 20% . This is not a new diagnosis. According to Dr. Nicole last clinic note she has refused biventricular AICD previously. Continue p.o. Lasix and Aldactone. Continue beta-blockade. Entresto has been initiated today per hospital medicine. Follow with Dr. Nicole in 2 weeks. 3. LV APICAL THROMBUS -continue Eliquis twice daily. Follow up with Dr. Nicole in 2 weeks. 4. HISTORY OF CVA -continue Eliquis. 5. HYPERTENSION -under well control. Continue current plan of care. 6. DIABETES - Defer management of this to attending. 7. UTI - Continue current plan of care with antibiotics. Management per attending. 8. DYSLIPIDEMIA - Continue lipid-lowering agent. Lipid panel reviewed. Exam (Progress Note) - Constitutional Vitals: Period Temp Pulse Resp BP Sys/Gee Pulse Ox Last 24 Hr 96.4 F-97.3 F 65-105 16-20 101-125/66-89 94-100 Exam: General: Appears well with no apparent distress. Appears comfortable. HEENT: PERRL, normocephalic, atraumatic. Mucous membranes moist. Neck: No JVD/HJR, no thyromegaly or lymphadenopathy noted. No carotid bruit appreciated Cardiac: Regular rate and rhythm. No murmur rub or gallop. Lungs: Clear to auscultation without accessory muscle use to assist the respiratory pattern. Not requiring oxygen. Abdomen: Soft, bowel sounds normoactive. Nontender and nondistended. No abdominal bruit or thrill noted. No masses noted. Extremities: No clubbing, cyanosis noted. No edema noted. Upper extremity pulses 2+. Lower extremity pulses 2+. Capillary refill less than 3 seconds. Skin: No unusual lesions or rashes. No skin breakdown appreciated. Neuro: Left-sided hemiparesis noted. Result/EKG - Labs CBC & BMP: 05/25/17 04:34 05/25/17 04:34 Lab Results: I have reviewed the past 24 hour labs Labs: Laboratory Results - last 24 hr 05/24/17 05/24/17 05/25/17 15:48 19:56 04:34 WBC 6.5 RBC 4.20 Hgb 11.2 L Hct 35.4 L MCV 84.3 L MCH 27 MCHC 31.6 L RDW 17.0 Plt Count 217 MPV 10.5 Neut % (Auto) 66.6 Lymph % (Auto) 25.8 [place] % (Auto) 6.1 Eos % (Auto) 0.8 Baso % (Auto) 0.5 Neut # (Auto) 4.4 Lymph # (Auto) 1.7 [place] # (Auto) 0.4 Eos # (Auto) 0.1 Baso # (Auto) 0.0 Immature Gran % 0.2 Nucleated RBC % 0.3 Immature Gran # 0.01 Nucleated RBCs # 0.02 Sodium Potassium Chloride Carbon Dioxide Anion Gap BUN Creatinine GFR Calculation BUN/Creatinine Ratio Glucose POC Glucose 261 H 276 H Calculated Osmolality Calcium Magnesium 05/25/17 05/25/17 05/25/17 04:34 08:09 11:57 WBC RBC Hgb Hct MCV MCH MCHC RDW Plt Count MPV Neut % (Auto) Lymph % (Auto) [place] % (Auto) Eos % (Auto) Baso % (Auto) Neut # (Auto) Lymph # (Auto) [place] # (Auto) Eos # (Auto) Baso # (Auto) Immature Gran % Nucleated RBC % Immature Gran # Nucleated RBCs # Sodium 145 Potassium 3.5 Chloride 112 H Carbon Dioxide 23 Anion Gap 13.5 BUN 18 Creatinine 1.10 H GFR Calculation 80 BUN/Creatinine Ratio 16.00 Glucose 152 H POC Glucose 143 H 143 H Calculated Osmolality 292.7 Calcium 8.3 L Magnesium 2.0 Specialty Discharge - Follow Up or Referrals Follow up with: Jacob Nicole MD [Physician] - 06/08/17 9:40 am <Ata Oseguera - Last Filed: 05/25/17 13:28> Exam (Progress Note) - Constitutional Vitals: Period Temp Pulse Resp BP Sys/Gee Pulse Ox Last 24 Hr 96.4 F-97.3 F 65-105 16-20 101-125/66-89 94-100 Result/EKG - Labs CBC & BMP: 05/25/17 04:34 05/25/17 04:34 Labs: Laboratory Results - last 24 hr 05/24/17 05/24/17 05/25/17 15:48 19:56 04:34 WBC 6.5 RBC 4.20 Hgb 11.2 L Hct 35.4 L MCV 84.3 L MCH 27 MCHC 31.6 L RDW 17.0 Plt Count 217 MPV 10.5 Neut % (Auto) 66.6 Lymph % (Auto) 25.8 [place] % (Auto) 6.1 Eos % (Auto) 0.8 Baso % (Auto) 0.5 Neut # (Auto) 4.4 Lymph # (Auto) 1.7 [place] # (Auto) 0.4 Eos # (Auto) 0.1 Baso # (Auto) 0.0 Immature Gran % 0.2 Nucleated RBC % 0.3 Immature Gran # 0.01 Nucleated RBCs # 0.02 Sodium Potassium Chloride Carbon Dioxide Anion Gap BUN Creatinine GFR Calculation BUN/Creatinine Ratio Glucose POC Glucose 261 H 276 H Calculated Osmolality Calcium Magnesium 05/25/17 05/25/17 05/25/17 04:34 08:09 11:57 WBC RBC Hgb Hct MCV MCH MCHC RDW Plt Count MPV Neut % (Auto) Lymph % (Auto) [place] % (Auto) Eos % (Auto) Baso % (Auto) Neut # (Auto) Lymph # (Auto) [place] # (Auto) Eos # (Auto) Baso # (Auto) Immature Gran % Nucleated RBC % Immature Gran # Nucleated RBCs # Sodium 145 Potassium 3.5 Chloride 112 H Carbon Dioxide 23 Anion Gap 13.5 BUN 18 Creatinine 1.10 H GFR Calculation 80 BUN/Creatinine Ratio 16.00 Glucose 152 H POC Glucose 143 H 143 H Calculated Osmolality 292.7 Calcium 8.3 L Magnesium 2.0
== END 2017-05-25 14:05 | disposition home health service (06) | DRG 207 ==
LOC: N.ED 13:40 → N.EDINP 17:38 → SUATTDRO 17:38 → N.TELEN 17:56
PROVIDERS: ADMIT Internal Medicine; ATTEND Family Medicine

== ENCOUNTER 2017-09-19 13:41 | Inpatient (IN) ==
[2017-09-19] MEDS ORDERED: LEVOFLOXACIN INJ 500 MG in PREMIX 1 EACH IV STA (15:14)
[2017-09-19 15:57] LABS: Basophils # 0.1 10*3/uL (0.0-0.2); Basophils % 0.5 % (0.0-0.8); Eosinophils % 0.3 % (0.00-10.9); Hematocrit 37.1 VOL% (35.7-47.0); Immature Granulocytes % 0.6 %; Immature Granulocytes Absolute 0.06 #; Lymphocytes # 1.3 10*3/uL (1.4-4.0); Lymphocytes % 13.8 % (21.3-54.2); Mean Corpuscular HGB Conc 32.3 GM/DL (32-36); Mean Corpuscular Hemoglobin 29 PG (27-34); Mean Corpuscular Volume 88.8 FL (87-102); Monocytes # 0.6 10*3/uL (0.11-0.8); Monocytes % 6.2 % (1.7-12.7); NRBC # 0.02 10*3/uL; Neutrophils # 7.6 10*3/uL (1.4-7.4); Neutrophils % 78.6 % (38.7-73.9); Platelet Count 288 T/CUMM (130-400); Red Blood Count 4.18 MC/CUMM (3.8-5.5); Red Cell Distribution Width 16.4 % (9.3-17.3); White Blood Count 9.7 T/CUMM (4-12)
[2017-09-19] MEDS ORDERED: LACTULOSE 20 GM/30 ML UDCUP PO PRN (16:07)
[2017-09-19] MEDS ORDERED: ONDANSETRON 4 MG/2 ML VIAL IV PRN (16:07)
[2017-09-19] MEDS ORDERED: ALBUTEROL 2.5 MG/3 ML NEB RESP TX PRN (16:07)
[2017-09-19] MEDS ORDERED: ACETAMINOPHEN 325 MG TABLET PO PRN (16:07)
[2017-09-19] MEDS ORDERED: DEXTROSE 50% 25 GM/50 ML VIAL IV PRN (16:07)
[2017-09-19] MEDS ORDERED: BENZONATATE 100 MG CAPSULE PO PRN (16:07)
[2017-09-19] MEDS ORDERED: GLUCAGON 1 MG VIAL IM PRN (16:07)
[2017-09-19] MEDS ORDERED: LEVOFLOXACIN INJ 750 MG in PREMIX 1 EACH IV SCH (16:30)
[2017-09-19] MEDS ORDERED: LEVOFLOXACIN INJ 100 ML IV ONE (16:39)
[2017-09-19 17:44] LABS: Apearance,Urine CLEAR (Clear); Bacteria,Urine Occasional /HPF (Few); Bilirubin,Urine Negative (Negative); Blood, Urine Small mg/dL (Negative); Glucose,Urine (UA) Negative (Negative); Hyaline Casts,Urine 4 /LPF (0-3); Ketones,Urine Negative (Negative); Mucus,Urine Occasional /LPF (Occasional); Nitrite,Urine Positive (Negative); Protein,Urine Negative; RBC,Urine 5 /HPF (0-4); Squamous Epithelial Cell,Urine Occasional /HPF (0-10); Urine Color Yellow (Yellow); Urine Specific Gravity 1.009 (1.001-1.035); Urine Urobilinogen < 2.0 EU/DL (0.2-1.0); WBC,Urine 15 /HPF (0-6)
[2017-09-19] MEDS: INSULIN LISPRO 100 UNIT/ML SUBCUT SCH ×2 (18:39→22:24)
[2017-09-19] MEDS: SODIUM CHLORIDE 0.9% 1,000 ML IV SCH (18:40)
[2017-09-19] MEDS ORDERED: INSULIN GLARGINE 100 UNIT/ML SUBCUT SCH (19:00)
[2017-09-19 19:55] LABS: Albumin 3.1 G/DL (3.4-5.0); Bilirubin,Total 0.5 MG/DL (0.2-1.0); Calcium 8.9 MG/DL (8.5-10.1); Total Protein 7.4 G/DL (6.4-8.3)
[2017-09-19] MEDS ORDERED: ENOXAPARIN 40 MG/0.4 ML SYRINGE SUBCUT ONE (20:00)
[2017-09-19] MEDS ORDERED: CARVEDILOL 3.125 MG TABLET PO SCH (21:00)
[2017-09-19] MEDS ORDERED: guaiFENesin/DM ER 600-30 MG TABLET PO SCH (21:00)
[2017-09-19] MEDS ORDERED: SACUBITRIL/VALSARTAN 49-51 MG TABLET PO SCH (21:00)
[2017-09-19] MEDS ORDERED: FUROSEMIDE 40 MG TABLET PO SCH (21:00)
[2017-09-19] MEDS ORDERED: carBAMazepine 200 MG TABLET PO SCH (21:00)
[2017-09-19] MEDS ORDERED: NON-FORMULARY MEDICATION (Rosuvastatin Calcium [Crestor] 40 MG) PO SCH (21:00)
[2017-09-19] MEDS: FUROSEMIDE 40 MG TABLET PO SCH (21:02)
[2017-09-19] MEDS: ROSUVASTATIN 20 MG TABLET PO SCH (21:02)
[2017-09-19] MEDS: carBAMazepine 200 MG TABLET PO SCH (21:03)
[2017-09-19] MEDS: SACUBITRIL/VALSARTAN 49-51 MG TABLET PO SCH (21:04)
[2017-09-19] MEDS: CARVEDILOL 3.125 MG TABLET PO SCH (21:04)
[2017-09-19] MEDS: guaiFENesin/DM ER 600-30 MG TABLET PO SCH (21:04)
[2017-09-19] MEDS ORDERED: ZALEPLON 5 MG CAPSULE PO PRN (22:12)
[2017-09-19] MEDS: INSULIN GLARGINE 100 UNIT/ML SUBCUT SCH (22:24)
[2017-09-19 22:57] LABS: INR 1.2; PT Patient Result 12.3 SECS
[2017-09-20] MEDS ORDERED: ENOXAPARIN 40 MG/0.4 ML SYRINGE SUBCUT ONE (08:00)
[2017-09-20] MEDS: SODIUM CHLORIDE 0.9% 1,000 ML IV SCH (08:06)
[2017-09-20] MEDS ORDERED: SPIRONOLACTONE 50 MG TABLET PO SCH (09:00)
[2017-09-20] MEDS ORDERED: FLUTICASONE 50 MCG NASAL SPRAY 16 GM BOTTLE BOTH NARES SCH (09:00)
[2017-09-20] MEDS ORDERED: NON-FORMULARY MEDICATION (Cyanocobalamin (Vitamin B-12) [Vitamin B12] 2,500 MCG) PO SCH (09:00)
[2017-09-20] MEDS ORDERED: PANTOPRAZOLE 40 MG TABLET PO SCH (09:00)
[2017-09-20] MEDS: SACUBITRIL/VALSARTAN 49-51 MG TABLET PO SCH ×2 (09:23→20:45)
[2017-09-20] MEDS: SPIRONOLACTONE 50 MG TABLET PO SCH (09:24)
[2017-09-20] MEDS: CARVEDILOL 3.125 MG TABLET PO SCH ×2 (09:24→20:36)
[2017-09-20] MEDS: PANTOPRAZOLE 40 MG TABLET PO SCH (09:24)
[2017-09-20] MEDS: guaiFENesin/DM ER 600-30 MG TABLET PO SCH ×2 (09:24→20:44)
[2017-09-20] MEDS: CYANOCOBALAMIN 500 MCG TABLET PO SCH (09:24)
[2017-09-20] MEDS: FUROSEMIDE 40 MG TABLET PO SCH (09:24)
[2017-09-20] MEDS: INSULIN LISPRO 100 UNIT/ML SUBCUT SCH ×4 (09:24→20:45)
[2017-09-20] MEDS: carBAMazepine 200 MG TABLET PO SCH ×2 (09:26→20:38)
[2017-09-20] MEDS: FLUTICASONE 50 MCG NASAL SPRAY 16 GM BOTTLE BOTH NARES SCH (10:08)
[2017-09-20] MEDS: FUROSEMIDE 40 MG/4 ML VIAL IV SCH ×2 (11:33→15:32)
[2017-09-20] MEDS ORDERED: FUROSEMIDE 100 MG/10 ML VIAL ONE (15:24)
[2017-09-20] MEDS: LEVOFLOXACIN INJ 750 MG in PREMIX 1 EACH IV SCH ×2 (15:31→17:25)
[2017-09-20] MEDS: LEVOFLOXACIN 750 MG TABLET PO SCH (17:49)
[2017-09-20] MEDS: ROSUVASTATIN 20 MG TABLET PO SCH (20:38)
[2017-09-20] MEDS: INSULIN GLARGINE 100 UNIT/ML SUBCUT SCH (20:45)
[2017-09-21] MEDS: INSULIN LISPRO 100 UNIT/ML SUBCUT SCH ×4 (08:10→21:07)
[2017-09-21] MEDS: carBAMazepine 200 MG TABLET PO SCH ×2 (08:52→21:05)
[2017-09-21] MEDS: SACUBITRIL/VALSARTAN 49-51 MG TABLET PO SCH ×2 (08:52→21:05)
[2017-09-21] MEDS: LEVOFLOXACIN 750 MG TABLET PO SCH (08:52)
[2017-09-21] MEDS: PANTOPRAZOLE 40 MG TABLET PO SCH (08:52)
[2017-09-21] MEDS: guaiFENesin/DM ER 600-30 MG TABLET PO SCH ×2 (08:52→21:05)
[2017-09-21] MEDS: CYANOCOBALAMIN 500 MCG TABLET PO SCH (08:52)
[2017-09-21] MEDS: CARVEDILOL 3.125 MG TABLET PO SCH ×2 (08:52→21:05)
[2017-09-21] MEDS: FUROSEMIDE 40 MG TABLET PO SCH ×3 (08:52→21:05)
[2017-09-21] MEDS: SPIRONOLACTONE 50 MG TABLET PO SCH (08:53)
[2017-09-21] MEDS: FLUTICASONE 50 MCG NASAL SPRAY 16 GM BOTTLE BOTH NARES SCH (08:53)
[2017-09-21] MEDS: APIXABAN 5 MG TABLET PO SCH ×2 (12:11→21:05)
[2017-09-21] MEDS: ROSUVASTATIN 20 MG TABLET PO SCH (21:06)
[2017-09-21] MEDS: INSULIN GLARGINE 100 UNIT/ML SUBCUT SCH (21:07)
[2017-09-22] MEDS: FUROSEMIDE 40 MG TABLET PO SCH ×2 (03:19→08:17)
[2017-09-22] MEDS: INSULIN LISPRO 100 UNIT/ML SUBCUT SCH ×2 (08:16→10:41)
[2017-09-22] MEDS: CYANOCOBALAMIN 500 MCG TABLET PO SCH (08:17)
[2017-09-22] MEDS: carBAMazepine 200 MG TABLET PO SCH (08:17)
[2017-09-22] MEDS: SACUBITRIL/VALSARTAN 49-51 MG TABLET PO SCH (08:17)
[2017-09-22] MEDS: guaiFENesin/DM ER 600-30 MG TABLET PO SCH (08:17)
[2017-09-22] MEDS: PANTOPRAZOLE 40 MG TABLET PO SCH (08:18)
[2017-09-22] MEDS: APIXABAN 5 MG TABLET PO SCH (08:18)
[2017-09-22] MEDS: LEVOFLOXACIN 750 MG TABLET PO SCH (08:18)
[2017-09-22] MEDS: FLUTICASONE 50 MCG NASAL SPRAY 16 GM BOTTLE BOTH NARES SCH (08:18)
[2017-09-22] MEDS: CARVEDILOL 3.125 MG TABLET PO SCH (08:18)
[2017-09-22] MEDS: SPIRONOLACTONE 50 MG TABLET PO SCH (08:18)
[2017-09-22 09:12] VITALS: BP 90/53
== END 2017-09-22 10:41 | disposition home health service (06) | DRG 139 ==
LOC: EDUNIT# → EDBD → N.ED 13:41 → N.5E 18:31
PROVIDERS: ADMIT Internal Medicine; ATTEND Internal Medicine

== ENCOUNTER 2017-11-24 12:48 | Inpatient (IN) ==
[2017-11-24] MEDS ORDERED: SODIUM CHLORIDE 0.9% 500 ML IV STA (13:25)
[2017-11-24] MEDS ORDERED: ONDANSETRON 4 MG/2 ML VIAL IV PRN ×2 (13:25→18:19)
[2017-11-24] MEDS ORDERED: LEVOFLOXACIN INJ 500 MG in PREMIX 1 EACH IV STA (16:08)
[2017-11-24] MEDS ORDERED: ALBUTEROL NEB SOLN 5 MG/ML 20 ML/BOTTLE CONT NEB STA (16:49)
[2017-11-24] MEDS ORDERED: LEVOFLOXACIN INJ 100 ML IV ONE (16:53)
[2017-11-24 17:14] LABS: Calcium 8.4 MG/DL (8.5-10.1)
[2017-11-24 17:18] LABS: Basophils % 0.5 % (0.0-0.8); Bilirubin,Total 0.6 MG/DL (0.2-1.0); Eosinophils % 0.3 % (0.00-10.9); Hematocrit 46.4 VOL% (35.7-47.0); Immature Granulocytes % 0.6 %; Immature Granulocytes Absolute 0.04 #; Lymphocytes # 1.4 10*3/uL (1.4-4.0); Lymphocytes % 21.1 % (21.3-54.2); Mean Corpuscular HGB Conc 28.4 GM/DL (32-36); Mean Corpuscular Hemoglobin 27 PG (27-34); Mean Corpuscular Volume 93.2 FL (87-102); Mean Platelet Volume 12.2 FL (9.6-12.0); Monocytes # 0.4 10*3/uL (0.11-0.8); Monocytes % 5.5 % (1.7-12.7); NRBC # 0.06 10*3/uL; Neutrophils # 4.7 10*3/uL (1.4-7.4); Platelet Count 158 T/CUMM (130-400); Red Blood Count 4.98 MC/CUMM (3.8-5.5); Red Cell Distribution Width 18.5 % (9.3-17.3); White Blood Count 6.5 T/CUMM (4-12)
[2017-11-24 17:19] LABS: Albumin 2.9 G/DL (3.4-5.0); Osmolality,Calculated 347.1 MOS/KG (273-304); Potassium 3.8 MMOL/L (3.5-5.1)
[2017-11-24 17:20] LABS: Hemoglobin 13.2 GM/DL (12.0-16.0)
[2017-11-24 17:32] LABS: Giant Platelets Few; Hypochromasia 1+; Ovalocytes Slight; Platelet Estimate Normal
[2017-11-24] MEDS ORDERED: ACETAMINOPHEN 325 MG TABLET PO PRN (18:19)
[2017-11-24] MEDS ORDERED: GLUCAGON 1 MG VIAL IM PRN (18:23)
[2017-11-24] MEDS ORDERED: DEXTROSE 50% 25 GM/50 ML VIAL IV PRN (18:23)
[2017-11-24] MEDS ORDERED: ALBUTEROL 2.5 MG/3 ML NEB RESP TX PRN (18:24)
[2017-11-24] MEDS: INSULIN REGULAR 100 UNIT/ML SUBCUT SCH (21:21)
[2017-11-24] MEDS: SODIUM CHLORIDE 0.45% 1,000 ML IV SCH (21:21)
[2017-11-24] MEDS: ENOXAPARIN 40 MG/0.4 ML SYRINGE SUBCUT SCH (21:21)
[2017-11-24] MEDS: ALBUTEROL/IPRATROPIUM 3 ML NEB RESP TX SCH (21:26)
[2017-11-25] MEDS: ALBUTEROL/IPRATROPIUM 3 ML NEB RESP TX SCH ×5 (01:38→23:53)
[2017-11-25 02:36] LABS: Basophils % 0.2 % (0.0-0.8); Hematocrit 43.4 VOL% (35.7-47.0); Immature Granulocytes % 0.7 %; Immature Granulocytes Absolute 0.06 #; Lymphocytes # 1.1 10*3/uL (1.4-4.0); Lymphocytes % 13.8 % (21.3-54.2); Mean Corpuscular HGB Conc 27.6 GM/DL (32-36); Mean Corpuscular Hemoglobin 26 PG (27-34); Mean Corpuscular Volume 93.9 FL (87-102); Mean Platelet Volume 12.4 FL (9.6-12.0); Monocytes # 0.6 10*3/uL (0.11-0.8); Monocytes % 6.7 % (1.7-12.7); NRBC # 0.05 10*3/uL; Neutrophils # 6.4 10*3/uL (1.4-7.4); Neutrophils % 78.6 % (38.7-73.9); Platelet Count 129 T/CUMM (130-400); Red Blood Count 4.62 MC/CUMM (3.8-5.5); White Blood Count 8.2 T/CUMM (4-12)
[2017-11-25 02:56] LABS: Blood Urea Nitrogen 32 MG/DL (7-18); Calcium 8.3 MG/DL (8.5-10.1); Glucose 168 MG/DL (74-106); Osmolality,Calculated 347.1 MOS/KG (273-304); Potassium 3.4 MMOL/L (3.5-5.1)
[2017-11-25 03:19] LABS: Macrocytosis 2+; Platelet Estimate Decreased
[2017-11-25 03:23] LABS: Sodium > 171 MMOL/L (136-145)
[2017-11-25] MEDS: INSULIN REGULAR 100 UNIT/ML SUBCUT SCH ×4 (08:24→20:34)
[2017-11-25 09:01] LABS: Calcium 8.2 MG/DL (8.5-10.1); Osmolality,Calculated 342.3 MOS/KG (273-304); Potassium 3.6 MMOL/L (3.5-5.1)
[2017-11-25] MEDS: PANTOPRAZOLE 40 MG TABLET PO SCH (09:33)
[2017-11-25] MEDS ORDERED: HALOPERIDOL 5 MG/ML AMP IM ONE (11:55)
[2017-11-25] MEDS: HALOPERIDOL 5 MG/ML AMP IM SCH ×2 (12:30→12:50)
[2017-11-25 14:32] LABS: Osmolality,Calculated 339.8 MOS/KG (273-304); Potassium 3.8 MMOL/L (3.5-5.1)
[2017-11-25] MEDS: SODIUM CHLORIDE 0.45% 1,000 ML IV SCH (17:32)
[2017-11-25] MEDS: ENOXAPARIN 40 MG/0.4 ML SYRINGE SUBCUT SCH (20:34)
[2017-11-25 20:35] LABS: Calcium 7.9 MG/DL (8.5-10.1); Osmolality,Calculated 334.8 MOS/KG (273-304); Potassium 4.1 MMOL/L (3.5-5.1)
[2017-11-25] MEDS: LEVOFLOXACIN INJ 750 MG in PREMIX 1 EACH IV SCH (21:00)
[2017-11-25] MEDS: ZALEPLON 5 MG CAPSULE PO PRN (23:48)
[2017-11-26] MEDS: carBAMazepine 200 MG TABLET PO SCH ×3 (05:40→21:01)
[2017-11-26] MEDS: APIXABAN 5 MG TABLET PO SCH ×3 (05:40→21:02)
[2017-11-26] MEDS: SODIUM CHLORIDE 0.45% 1,000 ML IV SCH ×2 (05:41→17:36)
[2017-11-26 05:49] LABS: Albumin 2.3 G/DL (3.4-5.0); Bilirubin,Total 1.2 MG/DL (0.2-1.0); Calcium 8.4 MG/DL (8.5-10.1); Osmolality,Calculated 326.9 MOS/KG (273-304); Potassium 3.8 MMOL/L (3.5-5.1); Total Protein 5.9 G/DL (6.4-8.3)
[2017-11-26] MEDS: ALBUTEROL/IPRATROPIUM 3 ML NEB RESP TX SCH ×3 (07:31→20:48)
[2017-11-26] MEDS: CARVEDILOL 3.125 MG TABLET PO SCH ×2 (10:09→21:03)
[2017-11-26] MEDS: amLODIPine 10 MG TABLET PO SCH (10:09)
[2017-11-26] MEDS: CYANOCOBALAMIN 500 MCG TABLET PO SCH (10:09)
[2017-11-26] MEDS: INSULIN REGULAR 100 UNIT/ML SUBCUT SCH ×4 (10:13→21:03)
[2017-11-26] MEDS: PANTOPRAZOLE 40 MG TABLET PO SCH (10:18)
[2017-11-26] MEDS: DEXTROSE 5% 1,000 ML IV SCH (12:38)
[2017-11-26] MEDS: ROSUVASTATIN 20 MG TABLET PO SCH (21:01)
[2017-11-26] MEDS: ZALEPLON 5 MG CAPSULE PO PRN (21:01)
[2017-11-26] MEDS: INSULIN GLARGINE 100 UNIT/ML SUBCUT SCH (21:02)
[2017-11-26] MEDS: ENOXAPARIN 40 MG/0.4 ML SYRINGE SUBCUT SCH (21:39)
[2017-11-26] MEDS: LEVOFLOXACIN INJ 750 MG in PREMIX 1 EACH IV SCH (21:44)
[2017-11-27] MEDS: ALBUTEROL/IPRATROPIUM 3 ML NEB RESP TX SCH ×4 (00:48→19:33)
[2017-11-27] MEDS: DEXTROSE 5% 1,000 ML IV SCH ×2 (03:00→10:23)
[2017-11-27 06:56] LABS: Calcium 8.3 MG/DL (8.5-10.1); Magnesium 2.2 MG/DL (1.8-2.4); Potassium 3.4 MMOL/L (3.5-5.1)
[2017-11-27] MEDS: CYANOCOBALAMIN 500 MCG TABLET PO SCH (09:17)
[2017-11-27] MEDS: carBAMazepine 200 MG TABLET PO SCH ×2 (09:17→21:16)
[2017-11-27] MEDS: INSULIN REGULAR 100 UNIT/ML SUBCUT SCH ×4 (09:17→21:20)
[2017-11-27] MEDS: CARVEDILOL 3.125 MG TABLET PO SCH ×2 (09:17→21:16)
[2017-11-27] MEDS: PANTOPRAZOLE 40 MG TABLET PO SCH (09:18)
[2017-11-27] MEDS: APIXABAN 5 MG TABLET PO SCH ×2 (09:18→21:16)
[2017-11-27] MEDS: amLODIPine 10 MG TABLET PO SCH (09:18)
[2017-11-27] MEDS ORDERED: POTASSIUM CHLORIDE 20 MEQ TABLET PO ONE (10:23)
[2017-11-27] MEDS: ROSUVASTATIN 20 MG TABLET PO SCH (21:16)
[2017-11-27] MEDS: INSULIN GLARGINE 100 UNIT/ML SUBCUT SCH (21:16)
[2017-11-27] MEDS: LEVOFLOXACIN INJ 750 MG in PREMIX 1 EACH IV SCH (22:38)
[2017-11-28] MEDS: ALBUTEROL/IPRATROPIUM 3 ML NEB RESP TX SCH ×4 (00:48→19:32)
[2017-11-28] MEDS: DEXTROSE 5% 1,000 ML IV SCH ×3 (05:29→21:31)
[2017-11-28] MEDS: CYANOCOBALAMIN 500 MCG TABLET PO SCH (08:07)
[2017-11-28] MEDS: carBAMazepine 200 MG TABLET PO SCH ×2 (08:08→22:22)
[2017-11-28] MEDS: amLODIPine 10 MG TABLET PO SCH (08:08)
[2017-11-28] MEDS: CARVEDILOL 3.125 MG TABLET PO SCH ×2 (08:14→22:23)
[2017-11-28] MEDS: APIXABAN 5 MG TABLET PO SCH ×2 (08:14→22:23)
[2017-11-28] MEDS: PANTOPRAZOLE 40 MG TABLET PO SCH (08:14)
[2017-11-28] MEDS: INSULIN REGULAR 100 UNIT/ML SUBCUT SCH ×5 (08:25→23:42)
[2017-11-28] MEDS ORDERED: LEVOFLOXACIN 750 MG TABLET PO SCH (21:00)
[2017-11-28] MEDS: LEVOFLOXACIN INJ 750 MG in PREMIX 1 EACH IV SCH (21:31)
[2017-11-28] MEDS: INSULIN GLARGINE 100 UNIT/ML SUBCUT SCH ×2 (21:34→23:42)
[2017-11-28] MEDS: ROSUVASTATIN 20 MG TABLET PO SCH (22:22)
[2017-11-29] MEDS: ALBUTEROL/IPRATROPIUM 3 ML NEB RESP TX SCH ×4 (00:28→20:48)
[2017-11-29] MEDS: DEXTROSE 5% 1,000 ML IV SCH ×3 (05:26→18:21)
[2017-11-29] MEDS: INSULIN REGULAR 100 UNIT/ML SUBCUT SCH ×4 (07:39→20:41)
[2017-11-29 08:43] LABS: Basophils % 0.3 % (0.0-0.8); Eosinophils % 0.3 % (0.00-10.9); Hematocrit 35.5 VOL% (35.7-47.0); Hemoglobin 10.7 GM/DL (12.0-16.0); Immature Granulocytes % 0.6 %; Immature Granulocytes Absolute 0.04 #; Lymphocytes # 1.5 10*3/uL (1.4-4.0); Lymphocytes % 22.2 % (21.3-54.2); Mean Corpuscular HGB Conc 30.1 GM/DL (32-36); Mean Corpuscular Hemoglobin 26 PG (27-34); Mean Corpuscular Volume 87.7 FL (87-102); Mean Platelet Volume 12.5 FL (9.6-12.0); Monocytes # 0.7 10*3/uL (0.11-0.8); Monocytes % 10.1 % (1.7-12.7); NRBC # 0.07 10*3/uL; Neutrophils # 4.5 10*3/uL (1.4-7.4); Neutrophils % 66.5 % (38.7-73.9); Platelet Count 164 T/CUMM (130-400); Red Blood Count 4.05 MC/CUMM (3.8-5.5); Red Cell Distribution Width 17.5 % (9.3-17.3); White Blood Count 6.7 T/CUMM (4-12)
[2017-11-29] MEDS: carBAMazepine 200 MG TABLET PO SCH (09:05)
[2017-11-29] MEDS: CYANOCOBALAMIN 500 MCG TABLET PO SCH (09:05)
[2017-11-29] MEDS: APIXABAN 5 MG TABLET PO SCH (09:05)
[2017-11-29] MEDS: CARVEDILOL 3.125 MG TABLET PO SCH (09:06)
[2017-11-29] MEDS: PANTOPRAZOLE 40 MG TABLET PO SCH (09:06)
[2017-11-29] MEDS: amLODIPine 10 MG TABLET PO SCH ×2 (09:07→11:34)
[2017-11-29 09:18] LABS: Potassium 3.8 MMOL/L (3.5-5.1)
[2017-11-29] MEDS ORDERED: DEXTROSE 5% 500 ML IV SCH (11:45)
[2017-11-29 15:10] LABS: ABG Base Excess -3.1 MMOL/L (-2.5-2.5); ABG HCO3 21.7 MMOL/L (20-26); ABG Oxygen Saturation 86.1 % (95-100); ABG PH 7.368 (7.35-7.45); ABG PO2 60.1 MM HG (80-95); ABG TCO2 19.8 MMOL/L (23-27)
[2017-11-29] MEDS: INSULIN GLARGINE 100 UNIT/ML SUBCUT SCH (20:41)
[2017-11-29 20:45] LABS: Basophils % 0.4 % (0.0-0.8); Eosinophils % 0.4 % (0.00-10.9); Hematocrit 34.3 VOL% (35.7-47.0); Hemoglobin 10.3 GM/DL (12.0-16.0); Immature Granulocytes % 0.6 %; Immature Granulocytes Absolute 0.04 #; Lymphocytes # 1.8 10*3/uL (1.4-4.0); Lymphocytes % 25.8 % (21.3-54.2); Mean Corpuscular Hemoglobin 26 PG (27-34); Mean Corpuscular Volume 87.1 FL (87-102); Mean Platelet Volume 12.5 FL (9.6-12.0); Monocytes # 0.7 10*3/uL (0.11-0.8); Monocytes % 9.5 % (1.7-12.7); NRBC # 0.09 10*3/uL; Neutrophils # 4.4 10*3/uL (1.4-7.4); Neutrophils % 63.3 % (38.7-73.9); Platelet Count 181 T/CUMM (130-400); Red Blood Count 3.94 MC/CUMM (3.8-5.5); Red Cell Distribution Width 17.8 % (9.3-17.3); White Blood Count 6.9 T/CUMM (4-12)
[2017-11-29 21:06] LABS: Albumin 2.3 G/DL (3.4-5.0); Bilirubin,Total 0.6 MG/DL (0.2-1.0); Magnesium 2.1 MG/DL (1.8-2.4); Osmolality,Calculated 294.4 MOS/KG (273-304); Potassium 3.8 MMOL/L (3.5-5.1)
[2017-11-29] MEDS: LEVOFLOXACIN INJ 750 MG in PREMIX 1 EACH IV SCH (21:42)
[2017-11-29] MEDS ORDERED: SODIUM CHLORIDE 0.9% 500 ML IV ONE (22:24)
[2017-11-29] MEDS ORDERED: NOREPINEPHRINE 8 MG in SODIUM CHLORIDE 0.9% 242 ML IV SCH (22:30)
[2017-11-30] MEDS: ALBUTEROL/IPRATROPIUM 3 ML NEB RESP TX SCH ×5 (00:33→19:27)
[2017-11-30 06:43] LABS: Calcium 8.4 MG/DL (8.5-10.1); Magnesium 2.3 MG/DL (1.8-2.4); Osmolality,Calculated 295.3 MOS/KG (273-304); Potassium 3.9 MMOL/L (3.5-5.1)
[2017-11-30 06:51] LABS: Basophils % 0.3 % (0.0-0.8); Eosinophils % 0.3 % (0.00-10.9); Hematocrit 39.1 VOL% (35.7-47.0); Hemoglobin 11.7 GM/DL (12.0-16.0); Immature Granulocytes % 0.7 %; Immature Granulocytes Absolute 0.04 #; Lymphocytes # 1.6 10*3/uL (1.4-4.0); Lymphocytes % 27.1 % (21.3-54.2); Mean Corpuscular HGB Conc 29.9 GM/DL (32-36); Mean Corpuscular Hemoglobin 26 PG (27-34); Mean Corpuscular Volume 87.9 FL (87-102); Mean Platelet Volume 12.7 FL (9.6-12.0); Monocytes # 0.4 10*3/uL (0.11-0.8); Monocytes % 7.6 % (1.7-12.7); NRBC # 0.08 10*3/uL; Neutrophils # 3.7 10*3/uL (1.4-7.4); Platelet Count 165 T/CUMM (130-400); Red Blood Count 4.45 MC/CUMM (3.8-5.5); Red Cell Distribution Width 18.3 % (9.3-17.3); White Blood Count 5.8 T/CUMM (4-12)
[2017-11-30] MEDS: PANTOPRAZOLE 40 MG VIAL IV SCH (08:53)
[2017-11-30] MEDS: INSULIN REGULAR 100 UNIT/ML SUBCUT SCH ×4 (08:53→21:48)
[2017-11-30] MEDS: HEPARIN DRIP 25,000 UNITS/500 ML PREMIX IV SCH (16:24)
[2017-11-30] MEDS: DEXTROSE 5% 1,000 ML IV SCH (17:55)
[2017-11-30] MEDS: LEVOFLOXACIN INJ 750 MG in PREMIX 1 EACH IV SCH (21:32)
[2017-11-30] MEDS: INSULIN GLARGINE 100 UNIT/ML SUBCUT SCH (21:47)
[2017-12-01] MEDS: ALBUTEROL/IPRATROPIUM 3 ML NEB RESP TX SCH ×4 (01:25→19:32)
[2017-12-01 02:52] LABS: Basophils % 0.3 % (0.0-0.8); Eosinophils % 0.1 % (0.00-10.9); Hematocrit 32.2 VOL% (35.7-47.0); Hemoglobin 9.9 GM/DL (12.0-16.0); Immature Granulocytes % 0.6 %; Immature Granulocytes Absolute 0.04 #; Lymphocytes # 1.6 10*3/uL (1.4-4.0); Lymphocytes % 23.9 % (21.3-54.2); Mean Corpuscular HGB Conc 30.7 GM/DL (32-36); Mean Corpuscular Hemoglobin 27 PG (27-34); Mean Corpuscular Volume 86.1 FL (87-102); Mean Platelet Volume 11.1 FL (9.6-12.0); Monocytes # 0.7 10*3/uL (0.11-0.8); Monocytes % 10.1 % (1.7-12.7); Neutrophils # 4.4 10*3/uL (1.4-7.4); Platelet Count 192 T/CUMM (130-400); Red Blood Count 3.74 MC/CUMM (3.8-5.5); Red Cell Distribution Width 18.3 % (9.3-17.3); White Blood Count 6.7 T/CUMM (4-12)
[2017-12-01 03:19] LABS: Calcium 7.8 MG/DL (8.5-10.1)
[2017-12-01 03:20] LABS: Osmolality,Calculated 292.8 MOS/KG (273-304)
[2017-12-01] MEDS: PANTOPRAZOLE 40 MG VIAL IV SCH (09:28)
[2017-12-01] MEDS: INSULIN REGULAR 100 UNIT/ML SUBCUT SCH ×4 (09:29→21:53)
[2017-12-01] MEDS: POLYETHYLENE GLYCOL POWDER 17 GM PACK PO SCH ×2 (11:09→22:03)
[2017-12-01] MEDS: HEPARIN DRIP 25,000 UNITS/500 ML PREMIX IV SCH (15:53)
[2017-12-01 18:07] LABS: INR 1.3
[2017-12-01 18:36] LABS: Partial Thromboplastin Time 44.3 SECS (0-40)
[2017-12-01] MEDS: INSULIN GLARGINE 100 UNIT/ML SUBCUT SCH (21:45)
[2017-12-01] MEDS: LEVOFLOXACIN INJ 750 MG in PREMIX 1 EACH IV SCH (21:46)
[2017-12-02 01:07] LABS: Basophils % 0.5 % (0.0-0.8); Eosinophils % 0.3 % (0.00-10.9); Hematocrit 31.4 VOL% (35.7-47.0); Hemoglobin 9.5 GM/DL (12.0-16.0); Immature Granulocytes % 0.8 %; Immature Granulocytes Absolute 0.05 #; Lymphocytes # 1.7 10*3/uL (1.4-4.0); Mean Corpuscular HGB Conc 30.3 GM/DL (32-36); Mean Corpuscular Hemoglobin 27 PG (27-34); Mean Corpuscular Volume 87.7 FL (87-102); Mean Platelet Volume 11.9 FL (9.6-12.0); Monocytes # 0.7 10*3/uL (0.11-0.8); Monocytes % 11.3 % (1.7-12.7); NRBC # 0.12 10*3/uL; Neutrophils % 61.1 % (38.7-73.9); Platelet Count 213 T/CUMM (130-400); Red Blood Count 3.58 MC/CUMM (3.8-5.5); Red Cell Distribution Width 18.5 % (9.3-17.3); White Blood Count 6.6 T/CUMM (4-12)
[2017-12-02 01:17] LABS: INR 1.2; Partial Thromboplastin Time 35.2 SECS (0-40)
[2017-12-02 01:35] LABS: Magnesium 2.1 MG/DL (1.8-2.4); Osmolality,Calculated 295.7 MOS/KG (273-304); Potassium 4.1 MMOL/L (3.5-5.1)
[2017-12-02] MEDS: ALBUTEROL/IPRATROPIUM 3 ML NEB RESP TX SCH ×5 (01:37→19:50)
[2017-12-02] MEDS ORDERED: metroNIDAZOLE INJ 500 MG in PREMIX 1 EACH IV STA (06:53)
[2017-12-02] MEDS: INSULIN REGULAR 100 UNIT/ML SUBCUT SCH ×4 (08:42→21:00)
[2017-12-02] MEDS: POLYETHYLENE GLYCOL POWDER 17 GM PACK PO SCH ×2 (08:43→22:31)
[2017-12-02] MEDS: PANTOPRAZOLE 40 MG VIAL IV SCH (09:29)
[2017-12-02 10:29] LABS: INR 1.3; PT Patient Result 13.4 SECS
[2017-12-02] MEDS: METOCLOPRAMIDE 10 MG/2 ML VIAL IV SCH ×2 (13:34→17:00)
[2017-12-02] MEDS: HEPARIN DRIP 25,000 UNITS/500 ML PREMIX IV SCH (21:29)
[2017-12-02] MEDS: LEVOFLOXACIN INJ 750 MG in PREMIX 1 EACH IV SCH (22:30)
[2017-12-02] MEDS: INSULIN GLARGINE 100 UNIT/ML SUBCUT SCH (22:31)
[2017-12-03] MEDS ORDERED: PHENYLEPHRINE DRIP 0 MG/0 ML PREMIX IV ONE (00:59)
[2017-12-03 01:18] LABS: Basophils % 0.2 % (0.0-0.8); Eosinophils % 0.2 % (0.00-10.9); Hematocrit 31.1 VOL% (35.7-47.0); Hemoglobin 9.8 GM/DL (12.0-16.0); Immature Granulocytes % 0.5 %; Immature Granulocytes Absolute 0.04 #; Lymphocytes # 1.6 10*3/uL (1.4-4.0); Mean Corpuscular HGB Conc 31.5 GM/DL (32-36); Mean Corpuscular Hemoglobin 27 PG (27-34); Mean Corpuscular Volume 85.2 FL (87-102); Mean Platelet Volume 11.1 FL (9.6-12.0); Monocytes % 11.3 % (1.7-12.7); NRBC # 0.07 10*3/uL; Neutrophils # 5.8 10*3/uL (1.4-7.4); Neutrophils % 68.8 % (38.7-73.9); Platelet Count 216 T/CUMM (130-400); Red Blood Count 3.65 MC/CUMM (3.8-5.5); White Blood Count 8.4 T/CUMM (4-12)
[2017-12-03 01:50] LABS: Calcium 8.7 MG/DL (8.5-10.1); Magnesium 2.2 MG/DL (1.8-2.4); Osmolality,Calculated 289.7 MOS/KG (273-304); Potassium 4.1 MMOL/L (3.5-5.1)
[2017-12-03 02:28] LABS: Troponin I Only 0.166 NG/ML (0.00-0.045)
[2017-12-03] MEDS: ALBUTEROL/IPRATROPIUM 3 ML NEB RESP TX SCH ×4 (02:35→19:10)
[2017-12-03] MEDS: METOCLOPRAMIDE 10 MG/2 ML VIAL IV SCH ×2 (04:40→05:47)
[2017-12-03] MEDS: INSULIN REGULAR 100 UNIT/ML SUBCUT SCH ×4 (07:42→23:00)
[2017-12-03] MEDS: APIXABAN 5 MG TABLET PO SCH ×2 (08:30→21:57)
[2017-12-03] MEDS: POLYETHYLENE GLYCOL POWDER 17 GM PACK PO SCH ×2 (08:31→22:13)
[2017-12-03] MEDS: METOCLOPRAMIDE 10 MG/10 ML UDCUP PEG SCH ×4 (08:31→21:57)
[2017-12-03] MEDS: LEVOFLOXACIN INJ 750 MG in PREMIX 1 EACH IV SCH (22:07)
[2017-12-03] MEDS: INSULIN GLARGINE 100 UNIT/ML SUBCUT SCH (23:00)
[2017-12-04] MEDS: ALBUTEROL/IPRATROPIUM 3 ML NEB RESP TX SCH ×4 (00:32→21:01)
[2017-12-04 05:44] LABS: Basophils % 0.1 % (0.0-0.8); Eosinophils % 0.3 % (0.00-10.9); Hematocrit 31.4 VOL% (35.7-47.0); Hemoglobin 9.6 GM/DL (12.0-16.0); Immature Granulocytes % 0.6 %; Immature Granulocytes Absolute 0.05 #; Lymphocytes # 1.4 10*3/uL (1.4-4.0); Lymphocytes % 17.6 % (21.3-54.2); Mean Corpuscular HGB Conc 30.6 GM/DL (32-36); Mean Corpuscular Hemoglobin 26 PG (27-34); Mean Corpuscular Volume 86.5 FL (87-102); Mean Platelet Volume 11.1 FL (9.6-12.0); Monocytes # 0.9 10*3/uL (0.11-0.8); Monocytes % 11.6 % (1.7-12.7); NRBC # 0.09 10*3/uL; Neutrophils # 5.5 10*3/uL (1.4-7.4); Neutrophils % 69.8 % (38.7-73.9); Platelet Count 217 T/CUMM (130-400); Red Blood Count 3.63 MC/CUMM (3.8-5.5); Red Cell Distribution Width 19.7 % (9.3-17.3); White Blood Count 7.9 T/CUMM (4-12)
[2017-12-04 06:07] LABS: Calcium 7.9 MG/DL (8.5-10.1); Magnesium 2.3 MG/DL (1.8-2.4); Osmolality,Calculated 294.4 MOS/KG (273-304); Potassium 4.3 MMOL/L (3.5-5.1)
[2017-12-04] MEDS: INSULIN REGULAR 100 UNIT/ML SUBCUT SCH ×4 (08:41→21:24)
[2017-12-04] MEDS: METOCLOPRAMIDE 10 MG/10 ML UDCUP PEG SCH ×4 (10:49→21:10)
[2017-12-04] MEDS: POLYETHYLENE GLYCOL POWDER 17 GM PACK PO SCH ×2 (11:06→21:09)
[2017-12-04] MEDS: APIXABAN 5 MG TABLET PO SCH ×2 (11:06→20:59)
[2017-12-04] MEDS: HALOPERIDOL 5 MG/ML AMP IM PRN (21:02)
[2017-12-04] MEDS: LEVOFLOXACIN INJ 750 MG in PREMIX 1 EACH IV SCH (21:10)
[2017-12-04] MEDS: INSULIN GLARGINE 100 UNIT/ML SUBCUT SCH (21:24)
[2017-12-05] MEDS: ALBUTEROL/IPRATROPIUM 3 ML NEB RESP TX SCH ×4 (00:19→19:21)
[2017-12-05 06:19] LABS: Basophils % 0.2 % (0.0-0.8); Eosinophils % 0.2 % (0.00-10.9); Hematocrit 30.5 VOL% (35.7-47.0); Hemoglobin 9.3 GM/DL (12.0-16.0); Immature Granulocytes % 0.4 %; Immature Granulocytes Absolute 0.04 #; Lymphocytes # 1.6 10*3/uL (1.4-4.0); Lymphocytes % 17.3 % (21.3-54.2); Mean Corpuscular HGB Conc 30.5 GM/DL (32-36); Mean Corpuscular Hemoglobin 27 PG (27-34); Mean Corpuscular Volume 87.4 FL (87-102); Mean Platelet Volume 10.9 FL (9.6-12.0); Monocytes # 0.9 10*3/uL (0.11-0.8); Monocytes % 9.3 % (1.7-12.7); NRBC # 0.13 10*3/uL; Neutrophils # 6.8 10*3/uL (1.4-7.4); Neutrophils % 72.6 % (38.7-73.9); Platelet Count 236 T/CUMM (130-400); Red Blood Count 3.49 MC/CUMM (3.8-5.5); Red Cell Distribution Width 19.5 % (9.3-17.3); White Blood Count 9.3 T/CUMM (4-12)
[2017-12-05 06:40] LABS: Calcium 8.3 MG/DL (8.5-10.1); Osmolality,Calculated 294.6 MOS/KG (273-304); Potassium 4.6 MMOL/L (3.5-5.1); Prealbumin 5.9 MG/DL (20-40)
[2017-12-05 06:45] LABS: Calcium 8.4 MG/DL (8.5-10.1); Magnesium 2.2 MG/DL (1.8-2.4); Osmolality,Calculated 294.6 MOS/KG (273-304); Potassium 4.6 MMOL/L (3.5-5.1)
[2017-12-05] MEDS: INSULIN REGULAR 100 UNIT/ML SUBCUT SCH ×4 (09:04→22:29)
[2017-12-05] MEDS: APIXABAN 5 MG TABLET PO SCH ×2 (09:46→22:29)
[2017-12-05] MEDS: LOSARTAN 25 MG TABLET PO SCH (09:46)
[2017-12-05] MEDS: POLYETHYLENE GLYCOL POWDER 17 GM PACK PO SCH ×2 (09:46→22:35)
[2017-12-05] MEDS: METOCLOPRAMIDE 10 MG/10 ML UDCUP PEG SCH ×4 (09:46→22:30)
[2017-12-05] MEDS: HALOPERIDOL 5 MG/ML AMP IM PRN (19:40)
[2017-12-05] MEDS: LEVOFLOXACIN INJ 750 MG in PREMIX 1 EACH IV SCH (22:25)
[2017-12-05] MEDS: CARVEDILOL 3.125 MG TABLET PO SCH (22:28)
[2017-12-05] MEDS: INSULIN GLARGINE 100 UNIT/ML SUBCUT SCH (22:29)
[2017-12-06] MEDS: ALBUTEROL/IPRATROPIUM 3 ML NEB RESP TX SCH ×2 (00:23→07:35)
[2017-12-06] MEDS: POLYETHYLENE GLYCOL POWDER 17 GM PACK PO SCH (09:55)
[2017-12-06] MEDS: CARVEDILOL 3.125 MG TABLET PO SCH (09:55)
[2017-12-06] MEDS: LOSARTAN 25 MG TABLET PO SCH (09:55)
[2017-12-06] MEDS: METOCLOPRAMIDE 10 MG/10 ML UDCUP PEG SCH (09:55)
[2017-12-06] MEDS: APIXABAN 5 MG TABLET PO SCH (09:55)
[2017-12-06] MEDS: INSULIN REGULAR 100 UNIT/ML SUBCUT SCH (09:57)
[2017-12-06 14:59] VITALS: BP 118/67
== END 2017-12-06 14:15 | disposition home or self-care (01) | DRG 422 ==
LOC: EDUNIT# → EDBD → N.ED 12:48 → SUATTDRO 18:19 → N.EDINP 18:19 → N.2E 19:45 → N.ICU 11-29 18:52 → N.5E 11-30 16:27 → N.ICU 12-03 01:01 → N.4E 12-03 12:05
PROVIDERS: ADMIT Family Medicine; ATTEND Internal Medicine
PROC: EGDWPEG (ICD-10-PCS; 2017-12-02 08:20)